=== PATIENT | male | born 1965 | race Caucasian/White ===

== ENCOUNTER 2018-03-31 05:09 | Inpatient (IN) ==
--- NOTE | 2018-03-31 05:45 | ED ---
HPI General Chief Complaint: Chest Pain Stated Complaint: Chest pressure, diff breathing Time Seen by Provider: 03/31/18 05:27 Source: patient Mode of arrival: ambulatory Limitations: no limitations History of Present Illness HPI narrative: 52 yo male complains of chest pain for about 14 hours. Onset occurred at rest. Associated symptoms include palpitations. No shortness of breath. The patient has a history of A. fib. He reports compliance with Xarelto diltiazem and metoprolol. Patient also has history of CHF and reports compliance to Lasix. No change in urinary frequency. Patient reports drinking alcohol typically daily. He denies drug abuse. No radiation of chest pain. MD complaint: Reports chest pain STEMI Alert: No Duration: constant Onset: during rest Pain location: Reports substernal Pain radiation: Reports none Relieving factors: nothing Related Data Home Medications Medication Instructions Recorded Confirmed furosemide 03/31/18 Allergies Allergy/AdvReac Type Severity Reaction Status Date / Time No Known Allergies Allergy Verified 03/31/18 05:26 Review of Systems ROS: all other systems reviewed are negative [facility] Family History Family History Other Family history non-contributory Social History Social History Substance History: Active Abuse Second Hand Smoke Exposure: Yes Smoking Status: Current every day smoker Tobacco Type: Cigarettes How Often Do You Have a Drink Containing Alcohol: 4 or more times a week Recent Travel in [facility] within the Last 8 Weeks: No Recent Out of Country Travel within the Last 8 Weeks: No Substance Abuse Detail Marijuana: Substance Use Status: Active Route Used Substance Abuse: Inhalation Reason for Use: Get High Immunization History Tetanus Immunization: <5 Years Exam Narrative Exam Narrative: GENERAL: 52-year-old male pleasant mild distress SKIN: Eczema. Dry and intact. HEAD: Atraumatic. Normocephalic. EYES: Pupils equal and round. No scleral icterus. No injection or drainage. ENT: No nasal bleeding or discharge. Mucous membranes pink and moist. NECK: Trachea midline. No JVD. CARDIOVASCULAR: Irregular. Tachycardia. RESPIRATORY: No accessory muscle use. Clear to auscultation. Breath sounds equal bilaterally. GASTROINTESTINAL: Abdomen soft, non-tender, nondistended. Hepatic and splenic margins not palpable. MUSCULOSKELETAL: No obvious deformities. No clubbing. No cyanosis. No edema. NEUROLOGICAL: Awake and alert. No obvious cranial nerve deficits. Motor grossly within normal limits. Normal speech. PSYCHIATRIC: Appropriate mood and affect; insight and judgment normal. Course Initial Documented Vital Signs Temperature 98.4 F 03/31/18 05:18 Pulse Rate 140 H 03/31/18 05:18 Respiratory Rate 21 03/31/18 05:18 Blood Pressure 141/83 H 03/31/18 05:18 Pulse Oximetry 97 03/31/18 05:18 Last Documented Vital Signs Temperature 98.2 F 03/31/18 16:00 Pulse Rate 135 H 03/31/18 16:00 Respiratory Rate 18 03/31/18 16:00 Blood Pressure 121/87 03/31/18 16:00 Pulse Oximetry 93 L 03/31/18 21:12 Critical Care Time Critical Care Time: Yes Total Critical Care Time: 40 Attestation: Aggregate critical care time was 40 minutes. Time to perform other separately billable procedures was not included in the critical care time. My time did not include minutes spent treating any other patients simultaneously or on activities that did not directly contribute to the patient's treatment. The services I provided to this patient were to treat and/or prevent clinically significant deterioration that could result in: Tachydysrhythmia, hypotensive shock I provided critical care services requiring my management, as noted below: Chart data review, documentation time, medication orders and management, vital sign assessments/reviewing monitor data, ordering and reviewing lab tests, ordering and interpreting/reviewing x-rays and diagnostic studies, care of the patient and discussion of the patient with the admitting physicians. Sign Out Sign Out Data: Patient Sign Out occurred on 03/31/18 at 07:11. Patient's care was discussed, and care was transferred from Steven Smith MD to Wisam Hess MD. Sign Out Comment: 52-year-old male arrives A. fib RVR. Chest pain is reported to be 7/10. He is on Xarelto for A. fib. He has been compliant with diltiazem and metoprolol. Comprehensive panel required a second tube due to hemolysis. 10 mg diltiazem IV initially did not change the heart rate. A second dose 20 mg followed by IV drip order has been placed. Please reassess the patient's pain status and heart rate and disposition pending the results of the compressive panel in the clinical status. Please call if you have any questions [phone] Last updated by Steven Smith MD at 03/31/18 06:51 Post-Handoff Eval: Patient evaluated by me Dr. Hess after sign out at 0700, 52-year-old male appears comfortable, chest tightness, also has a history of chronic significant alcohol intake to on a daily basis. Patient's troponin negative, remains tachycardic in the 140s-150s, Cardizem being titrated up. Discussed with Dr. Portillo for admission. The patient is followed by Dr. 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 Medical Decision Making MDM Narrative Medical decision making narrative: Patient arrives with Cortes alcantara RVR. He received 10 mg of diltiazem. Heart rate did not change. Nitroglycerin administered and the pain did not improved. Patient reassessed again at 6:45 AM. Morphine added. Diltiazem 20 mg followed by an IV drip. Recollect reported by the lab. A second tube was sent. Case discussed with oncoming provider at 7 AM. Disposition pending results of chemistry and patient's clinical status. Medical Screen Exam Complete: Yes Emergency Medical Condition: Yes Differential Diagnosis Differential Diagnosis: NSTEMI, unstable angina, coronary vasospasm, PE, PTX, aortic dissection, pericarditis, myocarditis, endocarditis, PNA, esophageal disease, aneurysm, musculoskeletal etiologies, anxiety, cocaine/sympathomimetic abuse Lab Data Result diagrams: 03/31/18 05:30 03/31/18 06:40 Lab Results 03/31/18 03/31/18 03/31/18 Range/Units 05:30 05:30 05:30 WBC 4.9 (4.0-11.0) th/mm3 RBC 4.87 (4.50-5.90) mil/mm3 Hgb 13.7 (13.0-17.0) gm/dL Hct 41.9 (39.0-51.0) % MCV 86.0 (80.0-100.0) fL MCH 28.2 (27.0-34.0) pg MCHC 32.8 (32.0-36.0) % RDW 19.0 H (11.6-17.2) % Plt Count 129 L (150-450) th/mm3 MPV 7.6 (7.0-11.0) fL Prelim Diff (Auto) Slide review pending Neut % (Auto) 60.4 (16.0-70.0) % Lymph % (Auto) 26.9 (9.0-44.0) % Lassen % (Auto) 8.9 H (0.0-8.0) % Eos % (Auto) 2.9 (0.0-4.0) % Baso % (Auto) 0.9 (0.0-2.0) % Neut # (Auto) 3.0 (1.8-7.7) th/mm3 Lymph # (Auto) 1.3 (1.0-4.8) th/mm3 Lassen # (Auto) 0.4 (0.0-0.9) th/mm3 Eos # (Auto) 0.1 (0.0-0.4) th/mm3 Baso # (Auto) 0.0 (0.0-0.2) th/mm3 WBC Differential . Diff Scan Auto diff confirmed Differential Comment . Platelet Estimate Low L (Normal) Platelet Morphology Normal (Normal) Ovalocytes 1+ H (None) PT (9.8-11.6) sec INR Ratio D-Dimer Quant (PE/DVT) (0.00-0.50) mg/L FEU Sodium (136-145) meq/L Potassium (3.5-5.1) meq/L Chloride (98-107) meq/L Carbon Dioxide (21.0-32.0) meq/L Anion Gap (5-15) meq/L BUN (7-18) mg/dL Creatinine (0.60-1.30) mg/dL Estimated GFR (>89) mL/min Random Glucose (74-106) mg/dL Calcium (8.5-10.1) mg/dL Total Bilirubin (0.2-1.0) mg/dL AST (15-37) U/L ALT (12-78) U/L Alkaline Phosphatase (45-117) U/L Troponin I (0.02-0.05) ng/mL B-Natriuretic Peptide 102 H 83 (0-100) pg/mL Total Protein (6.4-8.2) g/dL Albumin (3.4-5.0) g/dL Urine Opiates Screen (Neg) Ur Barbiturates Screen (Neg) Ur Amphetamines Screen (Neg) U Benzodiazepines Scrn (Neg) Urine Cocaine Screen (Neg) U Cannabinoids Screen (Neg) Serum Alcohol (0-5) mg/dL 03/31/18 03/31/18 03/31/18 Range/Units 06:40 10:59 10:59 WBC (4.0-11.0) th/mm3 RBC (4.50-5.90) mil/mm3 Hgb (13.0-17.0) gm/dL Hct (39.0-51.0) % MCV (80.0-100.0) fL MCH (27.0-34.0) pg MCHC (32.0-36.0) % RDW (11.6-17.2) % Plt Count (150-450) th/mm3 MPV (7.0-11.0) fL Prelim Diff (Auto) Neut % (Auto) (16.0-70.0) % Lymph % (Auto) (9.0-44.0) % Lassen % (Auto) (0.0-8.0) % Eos % (Auto) (0.0-4.0) % Baso % (Auto) (0.0-2.0) % Neut # (Auto) (1.8-7.7) th/mm3 Lymph # (Auto) (1.0-4.8) th/mm3 Lassen # (Auto) (0.0-0.9) th/mm3 Eos # (Auto) (0.0-0.4) th/mm3 Baso # (Auto) (0.0-0.2) th/mm3 WBC Differential Diff Scan Differential Comment Platelet Estimate (Normal) Platelet Morphology (Normal) Ovalocytes (None) PT 12.9 H (9.8-11.6) sec INR 1.3 Ratio D-Dimer Quant (PE/DVT) (0.00-0.50) mg/L FEU Sodium 135 L (136-145) meq/L Potassium 3.6 (3.5-5.1) meq/L Chloride 96 L (98-107) meq/L Carbon Dioxide 22.6 (21.0-32.0) meq/L Anion Gap 16 H (5-15) meq/L BUN 11 (7-18) mg/dL Creatinine 1.14 (0.60-1.30) mg/dL Estimated GFR 67 L (>89) mL/min Random Glucose 82 (74-106) mg/dL Calcium 8.7 (8.5-10.1) mg/dL Total Bilirubin 1.1 H (0.2-1.0) mg/dL AST 38 H (15-37) U/L ALT 27 (12-78) U/L Alkaline Phosphatase 84 (45-117) U/L Troponin I Less than 0.02 L Less than 0.02 L (0.02-0.05) ng/mL B-Natriuretic Peptide (0-100) pg/mL Total Protein 9.0 H (6.4-8.2) g/dL Albumin 3.4 (3.4-5.0) g/dL Urine Opiates Screen (Neg) Ur Barbiturates Screen (Neg) Ur Amphetamines Screen (Neg) U Benzodiazepines Scrn (Neg) Urine Cocaine Screen (Neg) U Cannabinoids Screen (Neg) Serum Alcohol 44 H (0-5) mg/dL 03/31/18 03/31/18 03/31/18 Range/Units 10:59 13:46 15:58 WBC (4.0-11.0) th/mm3 RBC (4.50-5.90) mil/mm3 Hgb (13.0-17.0) gm/dL Hct (39.0-51.0) % MCV (80.0-100.0) fL MCH (27.0-34.0) pg MCHC (32.0-36.0) % RDW (11.6-17.2) % Plt Count (150-450) th/mm3 MPV (7.0-11.0) fL Prelim Diff (Auto) Neut % (Auto) (16.0-70.0) % Lymph % (Auto) (9.0-44.0) % Lassen % (Auto) (0.0-8.0) % Eos % (Auto) (0.0-4.0) % Baso % (Auto) (0.0-2.0) % Neut # (Auto) (1.8-7.7) th/mm3 Lymph # (Auto) (1.0-4.8) th/mm3 Lassen # (Auto) (0.0-0.9) th/mm3 Eos # (Auto) (0.0-0.4) th/mm3 Baso # (Auto) (0.0-0.2) th/mm3 WBC Differential Diff Scan Differential Comment Platelet Estimate (Normal) Platelet Morphology (Normal) Ovalocytes (None) PT (9.8-11.6) sec INR Ratio D-Dimer Quant (PE/DVT) 0.84 H (0.00-0.50) mg/L FEU Sodium (136-145) meq/L Potassium (3.5-5.1) meq/L Chloride (98-107) meq/L Carbon Dioxide (21.0-32.0) meq/L Anion Gap (5-15) meq/L BUN (7-18) mg/dL Creatinine (0.60-1.30) mg/dL Estimated GFR (>89) mL/min Random Glucose (74-106) mg/dL Calcium (8.5-10.1) mg/dL Total Bilirubin (0.2-1.0) mg/dL AST (15-37) U/L ALT (12-78) U/L Alkaline Phosphatase (45-117) U/L Troponin I Less than 0.02 L (0.02-0.05) ng/mL B-Natriuretic Peptide (0-100) pg/mL Total Protein (6.4-8.2) g/dL Albumin (3.4-5.0) g/dL Urine Opiates Screen Neg (Neg) Ur Barbiturates Screen Neg (Neg) Ur Amphetamines Screen Neg (Neg) U Benzodiazepines Scrn Neg (Neg) Urine Cocaine Screen Neg (Neg) U Cannabinoids Screen Neg (Neg) Serum Alcohol (0-5) mg/dL Imaging Data Radiologist's impression: Chest CTA 03/31/18 00:00 CONCLUSION: 1. No evidence for pulmonary embolism. Chest X-Ray 03/31/18 05:27 CONCLUSION: Cardiomegaly. No acute pulmonary disease. ECG Data Attestation: I personally reviewed and interpreted this ECG as follows: Discharge Plan Discharge Disposition Patient Disposition: 30 Still Patient Physicians Team ED Provider: Wisam Hess Primary Care Provider: Chad Garcia Attending Provider: Elliot Triana Other Providers: Chiqui Byrne Status ED Status: Left Department Discharge Information Discharge Date/Time: 03/31/18 09:30
[2018-03-31 05:53] LABS: Baso % (Auto) 0.9 % (0.0-2.0); Eos # (Auto) 0.1 th/mm3 (0.0-0.4); Eos % (Auto) 2.9 % (0.0-4.0); Hematocrit 41.9 % (39.0-51.0); Hemoglobin 13.7 gm/dL (13.0-17.0); Lymph # (Auto) 1.3 th/mm3 (1.0-4.8); Lymph % (Auto) 26.9 % (9.0-44.0); Mean Corpuscular HGB Conc 32.8 % (32.0-36.0); Mean Corpuscular Hemoglobin 28.2 pg (27.0-34.0); Mean Platelet Volume 7.6 fL (7.0-11.0); Mono # (Auto) 0.4 th/mm3 (0.0-0.9); Mono % (Auto) 8.9 % (0.0-8.0); Neut % (Auto) 60.4 % (16.0-70.0); Platelet Count 129 th/mm3 (150-450); Red Blood Count 4.87 mil/mm3 (4.50-5.90); White Blood Count 4.9 th/mm3 (4.0-11.0)
--- NOTE | 2018-03-31 06:07 | XR ---
EXAM DATE: 03/31/2018 5:27 AM EDT AGE/SEX: 52 years / Male INDICATIONS: Substernal chest pain. CLINICAL DATA: This is the patient's initial encounter. Patient reports that signs and symptoms have been present for 1 day and indicates a pain score of 4/10. MEDICAL/SURGICAL HISTORY: Congestive heart failure. None. COMPARISON: [facility], CT CHEST W/O CONTRAST, 09/07/2014. . FINDINGS: The cardiac silhouette is enlarged in transverse diameter. The lungs are free of acute parenchymal op acity. No effusions are identified. There is pleural thickening and old fractures in the left chest. CONCLUSION: Cardiomegaly. No acute pulmonary disease. Electronically signed by: Azar Ledesma MD 03/31/2018 6:05 AM EDT
[2018-03-31 06:14] LABS: Alkaline Phosphatase 84 U/L (45-117)
[2018-03-31] MEDS ORDERED: Morphine Inj 4 MG/ML Vial IV.PUSH ONE (06:32)
[2018-03-31] MEDS: dilTIAZem Inj 125 MG in Sodium Chlor 0.9% Inj 100 ML IV.CONT PRN ×2 (07:15→18:16)
[2018-03-31 07:25] LABS: Albumin 3.4 g/dL (3.4-5.0); Anion Gap 16 meq/L (5-15); Aspartate Aminotransferase 38 U/L (15-37); Blood Urea Nitrogen 11 mg/dL (7-18); Calcium 8.7 mg/dL (8.5-10.1); Carbon Dioxide 22.6 meq/L (21.0-32.0); Chloride 96 meq/L (98-107); Glomerular Filtration Rate 67 mL/min (>89); Glucose,Random 82 mg/dL (74-106); Potassium 3.6 meq/L (3.5-5.1); Sodium 135 meq/L (136-145)
[2018-03-31 07:26] LABS: Alanine Aminotransferase 27 U/L (12-78)
[2018-03-31 07:27] LABS: Alcohol 44 mg/dL (0-5)
[2018-03-31 07:31] LABS: Platelet Morphology Normal (Normal)
[2018-03-31 07:32] LABS: Ovalocytes 1+
[2018-03-31] MEDS ORDERED: Bisacodyl 10 MG Supp RECTAL PRN (08:32)
[2018-03-31] MEDS ORDERED: Heparin - SQ 10,000 UNITS/ML Vial SQ SCH (09:00)
[2018-03-31] MEDS ORDERED: Sod Chloride 0.9% Inj 1,000 ML IV.CONT SCH (09:00)
[2018-03-31] MEDS ORDERED: Haloperidol Inj 5 MG/ML Ampul IV.PUSH PRN (09:36)
--- NOTE | 2018-03-31 09:49 | P.CONCA ---
History of Present Illness Service: Cardiology Consult date: 03/31/18 Reason for Consult: Afib RVR Primary Care Provider: Chad Garcia MD Chief Complaint: Chest pain, SOB History of Present Illness: Pleasant 52 year old male, known to our practice with a past cardiac history of Afib onset 07/2017, SVT, HTN, venous insuficiency, anemia, elevated LFTs, GERD, obesity, cellulitis, psoriasis, depression, tobacco abuse, and alcohol abuse. Patient reports that he felt like he was coming down with a virus yesterday, he laid down last night and developed SOB and chest pain, reports he felt like he was having a panic attack. Upon initial exam patient is in Afib RVR [id number] , diaphoretic, C/O chest pain and SOB. He was in ICU in [place] in Jun 2017 with HR in the 180s and alcohol detox. Patient was seen in office in August 2017. At that time he was on Xarelto 20mg daily, Metoprolol 50mg BID, Diltiazem 180mg BID, Furosemide 40mg daily, KCL 10meq daily, [id number], Ventolin HFA q 6 hrs PRN, and Bupropion ER 300mg daily. Plan was to start Amiodarone and paln for VEGA/Cardio in September, however the patient cancelled his follow up appointment. In August patient reported that he has been sober for 1 month and was in AA, unfortunately this AM he reports that he started drinking heavily again a few months ago. In the past he reported that his significant other of 16 years earlier this year with AIDS. Patient reported that he had HIV testing during a hospitalization in [place] earlier this year and he tested negative? Review of Systems Constitutional: Reports body ache(s), Reports excessive sweating, Reports night sweats Cardiovascular: Reports chest pain, Reports chest pain at rest, Reports chest pain with activity, Reports excessive sweating, Reports fast heart rate, Reports irregular heart rhythm, Reports leg sores, Reports leg swelling, Reports rapid, pounding, or irregular heartbeat, Reports shortness of breath with activity, Reports shortness of breath when lying down Respiratory: Reports shortness of breath Endocrine: Reports excessive sweating PMFSH - History History Provided By: Patient - Medical History Medical History: Medical History (Last Updated 10/17/18 @ 05:21 by Danielle Sam) Afib CHF (congestive heart failure) COPD (chronic obstructive pulmonary disease) Generalized psoriasis HTN (hypertension) - Surgical History Surgical History: Surgical History (Last Updated 03/31/18 @ 05:21 by Danielle Sam) History of appendectomy - Social History I have reviewed the patient's Social History: Yes - Tobacco History Tobacco Use In Past 30 Days: Yes Smoking Status: Current every day smoker Tobacco Type: Cigarettes - Alcohol History How Often Do You Have a Drink Containing Alcohol: 4 or more times a week - Substance Use History Substance History: Active Abuse - Substance Use Type Marijuana Status: Active Route Used: Inhalation Reason for Use: Get High - Travel History Recent Travel in the [place] Within the Last 8 Weeks: No Recent Travel Out of the Country Within the Last 8 Weeks: No - Immunization History Tetanus Immunization: <5 Years Medications and Allergies Allergies Allergy/AdvReac Type Severity Reaction Status Date / Time No Known Allergies Allergy Verified 03/31/18 05:26 Home Medications Medication Instructions Recorded Confirmed Type Unable to Obtain Home Meds 03/31/18 03/31/18 History Active Medications: Active Medications Al Hydroxide/Mg Hydroxide (Milk Of Magnesia Liq) 30 ml PO Q12H PRN PRN Reason: Mild Constipation Bisacodyl (Dulcolax Supp) 10 mg RECTAL DAILY PRN PRN Reason: SEVERE CONSITIPATION Flumazenil (Romazecon Inj) 0.2 mg IV.PUSH Q1M PRN PRN Reason: OVERSEDATION Haloperidol Lactate (Haldol Inj) 1 mg IV.PUSH Q15M PRN PRN Reason: for severe agitation Heparin Sodium (Porcine) (Heparin Inj) 5,000 units SQ Q8H JUSTO Diltiazem HCl 125 mg/ Sodium (Chloride) 125 mls @ 5 mls/hr IV.CONT TITRATE PRN ; Protocol PRN Reason: Per Protocol Last Titration: 03/31/18 08:00 Dose: 10 mg/hr, 10 mls/hr Sodium Chloride (Ns Inj) 1,000 mls @ 100 mls/hr IV.CONT .Q10H JUSTO Stop: 03/31/18 18:59 Lactulose (Lactulose Liq) 30 ml PO DAILY PRN PRN Reason: SEVERE CONSITIPATION Lorazepam (Ativan) 1 mg PO Q4H PRN PRN Reason: for CIWA 8-10 Lorazepam (Ativan Inj) 2 mg IV.PUSH Q2H PRN PRN Reason: for CIWA 11-14 Lorazepam (Ativan Inj) 2 mg IV.PUSH Q1H PRN PRN Reason: for CIWA 15-20 Lorazepam (Ativan Inj) 2 mg IV.PUSH Q15M PRN PRN Reason: for CIWA > 20 Lorazepam (Ativan Inj) 1 mg IV.PUSH Q4H PRN PRN Reason: for CIWA 8-10 Lorazepam (Ativan) 2 mg PO Q2H PRN PRN Reason: for CIWA 11-14 Metoprolol Tartrate (Lopressor) 50 mg PO BID JUSTO Sennosides (Senokot) 17.2 mg PO Q12H PRN PRN Reason: Moderate Constipation Sodium Chloride (Ns Flush) 2 ml IV.FLUSH UNSCH PRN PRN Reason: FLUSH AFTER USING IV ACCESS Last Admin: 03/31/18 05:46 Dose: 2 ml Exam Vital signs: Vital Signs 03/31/18 05:18 03/31/18 05:26 03/31/18 05:27 Temperature 98.4 F Pulse Rate 140 H 139 H Respiratory Rate 21 18 Blood Pressure 141/83 H 147/92 H Pulse Oximetry 97 97 97 03/31/18 06:12 03/31/18 06:46 03/31/18 08:30 Temperature Pulse Rate 140 H 121 H Respiratory Rate 20 16 Blood Pressure 134/65 163/116 H 152/89 H Pulse Oximetry 97 98 Intake & Output 03/30/18 03/31/18 03/31/18 18:59 06:59 18:59 Weight 127.006 kg - Constitutional mild distress, obese - Routine HEENT Exam Head: Present: atraumatic Eye: Present: PERRL, normal accommodation ENT: Present: mucous membranes moist - Routine Neck Exam Present: supple, full ROM, trachea midline - Routine Respiratory Exam Present: diminished air movement - Routine Cardiovascular Exam Present: tachycardia, irregularly irregular - Routine Extremities Exam Comments: elephantitis? psoriasis - Routine Skin Exam Present: dry, lesions, rash, cracked - Routine Neurological Exam Present: alert, oriented X3 Results 03/31/18 05:30 03/31/18 06:40 Cardiac Enzymes 03/31/18 03/31/18 Range/Units 05:30 06:40 AST 38 H (15-37) U/L Troponin I Less than 0.02 L (0.02-0.05) ng/mL B-Natriuretic Peptide 102 H (0-100) pg/mL Coagulation 03/31/18 Range/Units 05:30 B-Natriuretic Peptide 102 H (0-100) pg/mL CBC 03/31/18 Range/Units 05:30 WBC 4.9 (4.0-11.0) th/mm3 RBC 4.87 (4.50-5.90) mil/mm3 Hgb 13.7 (13.0-17.0) gm/dL Hct 41.9 (39.0-51.0) % Plt Count 129 L (150-450) th/mm3 Neut # (Auto) 3.0 (1.8-7.7) th/mm3 Lymph # (Auto) 1.3 (1.0-4.8) th/mm3 Bollinger # (Auto) 0.4 (0.0-0.9) th/mm3 Eos # (Auto) 0.1 (0.0-0.4) th/mm3 Baso # (Auto) 0.0 (0.0-0.2) th/mm3 Comprehensive Metabolic Panel 03/31/18 Range/Units 06:40 Sodium 135 L (136-145) meq/L Potassium 3.6 (3.5-5.1) meq/L Chloride 96 L (98-107) meq/L Carbon Dioxide 22.6 (21.0-32.0) meq/L BUN 11 (7-18) mg/dL Creatinine 1.14 (0.60-1.30) mg/dL Calcium 8.7 (8.5-10.1) mg/dL AST 38 H (15-37) U/L ALT 27 (12-78) U/L Alkaline Phosphatase 84 (45-117) U/L Total Protein 9.0 H (6.4-8.2) g/dL Albumin 3.4 (3.4-5.0) g/dL Intake and Output 03/30/18 03/31/18 03/31/18 22:59 06:59 14:59 Other: Weight 127.006 kg - Imaging and Cardiology Imaging: Impressions Chest X-Ray 03/31/18 05:27 CONCLUSION: Cardiomegaly. No acute pulmonary disease. Assessment and Plan - Plan Assessment Atrial fibrillation RVR Chest pain SOB HTN Alcohol withdrawal Psoriasis Plan Currently on Cardizem Drip, will restart home Metoprolol 50mg BID and DC heparin and resume Xarelto 20mg daily. 1st troponin negative.D-Dimer elevated, CTA negative for PE. CIWA protocol ordered per attending Will consult wound care. The patient was seen and evaluated by Dr. Byrne who participated in care management and decision making. The exam, history, and the medical decision-making described in the above note were completed with the assistance of the mid-level provider. I reviewed and agree with the findings presented. I attest that I had a [id number] encounter with the patient on the same day, and personally performed and documented my assessment and findings in the medical record. Very ill man negative cta ,on Xarelto. Code Status: Full Code Discussed Condition With: Attending Dr. Triana, RN Adrián
[2018-03-31] MEDS: Metoprolol Tartrate 50 MG Tablet PO SCH ×2 (11:06→20:18)
[2018-03-31] MEDS: Furosemide 40 MG Tablet PO SCH (11:07)
[2018-03-31] MEDS: Rivaroxaban 20 MG Tablet PO SCH (11:07)
[2018-03-31 11:19] LABS: INR 1.3 Ratio; Prothrombin Time 12.9 sec (9.8-11.6)
--- NOTE | 2018-03-31 13:00 | CT ---
EXAM DATE: 03/31/2018 12:21 PM EDT AGE/SEX: 52 years / Male INDICATIONS: Chest pain elevated D-dimer CLINICAL DATA: This is the patient's initial encounter. Patient reports that signs and symptoms have been present for 1 day and indicates a pain score of 5/10. MEDICAL/SURGICAL HISTORY: Chronic obstructive pulmonary disease. Congestive heart failure. Hypert ension. A-fib Appendectomy. RADIATION DOSE: 23.27 CTDI (mGy) COMPARISON: [facility], CHEST 1V SINGLE AP, 03/31/2018. . TECHNIQUE: Volumetric scanning was performed using a multi-row detector CT scanner during bolus infu lydia of 73 ml Omnipaque 350 (iohexol) nonionic water-soluble contrast as a single exam dose. The nena a was post processed with a variety of visualization algorithms including full volume maximum intensi ty projection and sliding thin slab reformation. Using automated exposure control and adjustment of the mA and/or kV according to patient size, radiation dose was kept as low as reasonably achievable t o obtain optimal diagnostic quality images. DICOM format image data is available electronically for review and comparison. FINDINGS: Mild dependent atelectatic changes are noted. No adenopathy. Cirrhotic appearing liver. No evidence f or pulmonary embolus. No pleural or pericardial effusions are seen. There are degenerative changes of the spine noted. CONCLUSION: 1. No evidence for pulmonary embolism. Electronically signed by: Roger Rick MD 03/31/2018 12:59 PM EDT
[2018-03-31] MEDS ORDERED: Influenza (Quadrivalent) Vaccine 0.5 ML Syringe IM ONE (14:00)
--- NOTE | 2018-03-31 14:17 | ECG ---
Date Performed: 03/31/2018 Time Performed: 05:20:07 PTAGE: 52 years EKG: ATRIAL FIBRILLATION WITH RAPID VENTRICULAR RESPONSE MINIMAL ST DEPRESSION ABNORMAL RHYTHM E CG ATRIAL FIBRILLATION has replaced Normal Sinus rhythm PREVIOUS TRACING : 01/12/2012 18.32 DOCTOR: Allison Bland M.D. Interpretating Date/Time 03/31/2018 14:17:04
[2018-03-31 14:40] LABS: Amphetamine Screen,Urine Neg (Neg); Barbiturate Screen,Urine Neg (Neg); Cannabinoid Screen,Urine Neg (Neg); Cocaine Screen,Urine Neg (Neg)
[2018-03-31 14:53] LABS: Opiate Screen,Urine Neg (Neg)
--- NOTE | 2018-03-31 16:18 | P.HPIM ---
History of Present Illness [facility] Physician: Chad Garcia MD Chief Complaint: Chest pain, SOB History of Present Illness: 52-year-old male with a medical history significant for atrial fibrillation, SVT , COPD, CHF, psoriasis, and alcohol dependence who presented to the emergency room with complaint of chest pain for about 14 hours. Patient reports the pain started at rest with associated heart palpitations. He denies shortness of breath. He reports he recently went back to drinking heavily 4-5 shots of vodka daily. In the emergency room, the patient was found to be in A. fib with RVR. He was started on a Cardizem drip. He is admitted to the hospital for further treatment. The patient's heart rate is still difficult to control currently. Inpatient Certification: I certify that the inpatient services were ordered in accordance with Medicare regulations governing the order. This includes certification that hospital inpatient services are reasonable and necessary and in the case of services not specified as inpatient-only under 42 CFR 419.22(n), that they are appropriately provided as inpatient services in accordance to with the 2-midnight benchmark under 43 CFR 412.3(e) Estimated Total Length of Stay (Days): 2 Plans for Post Hospital Care: Home Review of Systems All other systems reviewed negative except as stated in HPI Cardiovascular: Reports chest pain, Reports fast heart rate Respiratory: Reports shortness of breath with activity PMFSH - History History Provided By: Patient - Medical History Medical History: Medical History (Last Reviewed 03/31/18 @ 18:19 by Elliot Triana MD) Afib Alcohol dependence CHF (congestive heart failure) COPD (chronic obstructive pulmonary disease) Generalized psoriasis HTN (hypertension) - Surgical History Surgical History: Surgical History (Last Reviewed 03/31/18 @ 18:19 by Elliot Triana MD) History of appendectomy - Family History Family History: Family History (Last Updated 03/31/18 @ 18:19 by Elliot Triana MD) Other Family history non-contributory - Social History I have reviewed the patient's Social History: Yes - Tobacco History Second Hand Smoke Exposure: Yes Tobacco Use In Past 30 Days: Yes Smoking Status: Current every day smoker Tobacco Type: Cigarettes - Alcohol History How Often Do You Have a Drink Containing Alcohol: 4 or more times a week - Substance Use History Substance History: Active Abuse - Substance Use Type Marijuana Status: Active Route Used: Inhalation Frequency: rarely Last Used: 3 weeks ago Reason for Use: Get High - Travel History Recent Travel in the [place] Within the Last 8 Weeks: No Recent Travel Out of the Country Within the Last 8 Weeks: No - Immunization History Tetanus Immunization: <5 Years Hx Influenza Vaccine This Season: No Medications and Allergies Active Medications: Active Medications Al Hydroxide/Mg Hydroxide (Milk Of Magnesia Liq) 30 ml PO Q12H PRN PRN Reason: Mild Constipation Albuterol (Ventolin Hfa Inh) 2 puff INH Q6HR JUSTO Bisacodyl (Dulcolax Supp) 10 mg RECTAL DAILY PRN PRN Reason: SEVERE CONSITIPATION Flumazenil (Romazecon Inj) 0.2 mg IV.PUSH Q1M PRN PRN Reason: OVERSEDATION Furosemide (Lasix) 40 mg PO DAILY JUST[facility] Last Admin: 03/31/18 11:07 Dose: 40 mg Haloperidol Lactate (Haldol Inj) 1 mg IV.PUSH Q15M PRN PRN Reason: for severe agitation Diltiazem HCl 125 mg/ Sodium (Chloride) 125 mls @ 5 mls/hr IV.CONT TITRATE PRN ; Protocol PRN Reason: Per Protocol Last Titration: 03/31/18 08:15 Dose: 15 mg/hr, 15 mls/hr Sodium Chloride (Ns Inj) 1,000 mls @ 100 mls/hr IV.CONT .Q10H JUSTO Stop: 03/31/18 18:59 Lactulose (Lactulose Liq) 30 ml PO DAILY PRN PRN Reason: SEVERE CONSITIPATION Lorazepam (Ativan) 1 mg PO Q4H PRN PRN Reason: for CIWA 8-10 Lorazepam (Ativan Inj) 2 mg IV.PUSH Q2H PRN PRN Reason: for CIWA 11-14 Last Admin: 03/31/18 14:20 Dose: 2 mg Lorazepam (Ativan Inj) 2 mg IV.PUSH Q1H PRN PRN Reason: for CIWA 15-20 Lorazepam (Ativan Inj) 2 mg IV.PUSH Q15M PRN PRN Reason: for CIWA > 20 Lorazepam (Ativan Inj) 1 mg IV.PUSH Q4H PRN PRN Reason: for CIWA 8-10 Lorazepam (Ativan) 2 mg PO Q2H PRN PRN Reason: for CIWA -14 Last Admin: 03/31/18 11:06 Dose: 2 mg Metoprolol Tartrate (Lopressor) 50 mg PO BID [facility] Last Admin: 03/31/18 11:06 Dose: 50 mg Pantoprazole Sodium (Protonix) 40 mg PO DAILY [facility] Potassium Chloride (Klor-Con 10) 10 meq PO DAILY [facility] Last Admin: 03/31/18 11:07 Dose: 10 meq Rivaroxaban (Xarelto) 20 mg PO DAILY [facility] Last Admin: 03/31/18 11:07 Dose: 20 mg Sennosides (Senokot) 17.2 mg PO Q12H PRN PRN Reason: Moderate Constipation Sodium Chloride (Ns Flush) 2 ml IV.FLUSH UNSCH PRN PRN Reason: FLUSH AFTER USING IV ACCESS Last Admin: 03/31/18 05:46 Dose: 2 ml Allergies Allergy/AdvReac Type Severity Reaction Status Date / Time No Known Allergies Allergy Verified 03/31/18 05:26 Home Medications Medication Instructions Recorded Confirmed Type furosemide 03/31/18 History Exam Vital signs: Vital Signs 03/31/18 05:18 03/31/18 05:26 03/31/18 05:27 Temperature 98.4 F Pulse Rate 140 H 139 H Respiratory Rate 21 18 Blood Pressure 141/83 H 147/92 H Pulse Oximetry 97 97 97 03/31/18 06:12 03/31/18 06:46 03/31/18 08:30 Temperature Pulse Rate 140 H 121 H Respiratory Rate 20 16 Blood Pressure 134/65 163/116 H 152/89 H Pulse Oximetry 97 98 03/31/18 10:00 03/31/18 10:39 03/31/18 11:00 Temperature 98.2 F Pulse Rate 156 H 136 H 132 H Respiratory Rate 20 Blood Pressure 135/80 Pulse Oximetry 95 03/31/18 12:00 03/31/18 13:00 03/31/18 14:00 Temperature Pulse Rate 124 H 128 H 130 H Respiratory Rate Blood Pressure Pulse Oximetry 03/31/18 14:36 03/31/18 14:39 Temperature 98.2 F Pulse Rate 126 H Respiratory Rate 18 Blood Pressure 127/83 Pulse Oximetry 92 L 95 Intake & Output 03/30/18 03/31/18 03/31/18 18:59 06:59 18:59 Weight 127.006 kg Narrative: GENERAL: This is a well-nourished, well-developed patient, in no apparent distress. CARDIOVASCULAR: Rate in the 120s and irregular rhythm without murmurs, gallops, or rubs. RESPIRATORY: Good respiratory efforts. Breath sounds equal and clear to auscultation bilaterally. GASTROINTESTINAL: Abdomen soft, non-tender, non-distended. Normal active bowel sounds MUSCULOSKELETAL: Extremities without cyanosis, or edema. NEURO: Alert & Oriented x4 to person, place, time, situation. Moves all ext x4 PSYCH: Appropriate mood and affect. SKIN: Generalized psoriasis. Bilateral lower extremity chronic lymphedema changes. Results - Labs CBC & Chem 7: 03/31/18 05:30 03/31/18 06:40 Labs: Short CBC 03/31/18 Range/Units 05:30 WBC 4.9 (4.0-11.0) th/mm3 Hgb 13.7 (13.0-17.0) gm/dL Hct 41.9 (39.0-51.0) % Plt Count 129 L (150-450) th/mm3 BMP 03/31/18 06:40 Sodium 135 L Potassium 3.6 Chloride 96 L Carbon Dioxide 22.6 BUN 11 Creatinine 1.14 Calcium 8.7 Cardiac Enzymes 03/31/18 03/31/18 Range/Units 06:40 10:59 Troponin I Less than 0.02 L Less than 0.02 L (0.02-0.05) ng/mL Liver Function 03/31/18 Range/Units 06:40 Total Bilirubin 1.1 H (0.2-1.0) mg/dL AST 38 H (15-37) U/L ALT 27 (12-78) U/L Alkaline Phosphatase 84 (45-117) U/L Albumin 3.4 (3.4-5.0) g/dL - Imaging Impressions Chest CTA 03/31/18 00:00 CONCLUSION: 1. No evidence for pulmonary embolism. Chest X-Ray 03/31/18 05:27 CONCLUSION: Cardiomegaly. No acute pulmonary disease. Caprini VTE Risk Assessment Caprini VTE Risk Assessment: Moderate/High Risk (score >= 2) Caprini Risk Assessment Model: Point Value = 1 Point Value = 2 Point Value = 3 Point Value = 5 Age 41-60 Minor surgery BMI > 25 kg/m2 Swollen legs Varicose veins or History of unexplained or recurrent spontaneous Oral contraceptives or hormone replacement Sepsis (< 1 month) Serious lung disease, including pneumonia (< 1 month) Abnormal pulmonary function Acute myocardial infarction Congestive heart failure (< 1 month) History of inflammatory bowel disease Medical patient at bed rest Age 61-74 Arthroscopic surgery Major open surgery (> 45 min) Laparoscopic surgery (> 45 min) Malignancy Confined to bed (> 72 hours) Immobilizing plaster cast Central venous access Age >= 75 History of VTE Family history of VTE Factor V Leiden Prothrombin [id number] Lupus anticoagulant Anticardiolipin antibodies Elevated serum homocysteine Heparin-induced thrombocytopenia Other congenital or acquired thrombophilia Stroke (< 1 month) Elective arthroplasty Hip, pelvis, or leg fracture Acute spinal cord injury (< 1 month) Prophylaxis Regimen: Total Risk Factor Score Risk Level Prophylaxis Regimen 0-1 Low Early ambulation 2 Moderate Order ONE of the following: *Sequential Compression Device (SCD) *Heparin 5000 units SQ BID 3-4 Higher Order ONE of the following medications: *Heparin 5000 units SQ TID *Enoxaparin/Lovenox 40 mg SQ daily (WT < 150 kg, CrCl > 30 mL/min) *Enoxaparin/Lovenox 30 mg SQ daily (WT < 150 kg, CrCl > 10-29 mL/min) *Enoxaparin/Lovenox 30 mg SQ BID (WT < 150 kg, CrCl > 30 mL/min) AND/OR *Sequential Compression Device (SCD) 5 or more Highest Order ONE of the following medications: *Heparin 5000 units SQ TID (Preferred with Epidurals) *Enoxaparin/Lovenox 40 mg SQ daily (WT < 150 kg, CrCl > 30 mL/min) *Enoxaparin/Lovenox 30 mg SQ daily (WT < 150 kg, CrCl > 10-29 mL/min) *Enoxaparin/Lovenox 30 mg SQ BID (WT < 150 kg, CrCl > 30 mL/min) AND *Sequential Compression Device (SCD) Assessment and Plan - Plan 52-year-old male with history of A. fib, alcohol dependence, CHF admitted with A. fib with RVR. A. fib with RVR: - Patient is currently on a Cardizem drip. Rate not well controlled. Appreciate cardiology input. He was started on metoprolol as well. - Continue to monitor on telemetry. - Continue Xarelto. He definitely needs to stop drinking alcohol if he is to remain on blood thinners. Will defer to his practice coordinator. Alcohol dependence: - The patient was counseled extensively. - We will start CIWA protocol - Thiamine and folate CHF: Unknown type. - Continue Lasix, metoprolol. - Cardiology following. Chest pain: Could be secondary to A. fib with RVR. - Troponins so far negative. EKG shows A. fib. Cardiology following. - Pain control. CTA neg. GI prophylaxis: Stool softener PRN constipation. DVT PPx: On Xarelto. Discharge Planning: Admit to [facility]. H&P: Quality - VTE Deep Vein Thrombosis/Pulmonary Embolism Present on Admission: No
--- NOTE | 2018-03-31 17:11 | P.DIET ---
Nutritional Evaluation Type of nutrition evaluation: initial Nutrition consult regarding: Diet Evaluation Nutrition screening: Weight Loss > 10 lbs Subjective Subjective Comments: Pt had a variable intake of 0% breakfast and 100% lunch on 03/31. Per chart, pt stated he had unplanned wt loss. Objective - Diagnosis AFIB, RVR - Objective Body Mass Index: 40.2 [place] body weight: 75 kg % IBW: 168 Body Weight Used for Calculations: IBW Energy Needs - Lower Range (kCal/kg): 22 Energy Needs - Upper Range (kCal/kg): 27 Lower Limit kCal/kg (kCals): 1,660 Upper Limit kCal/kg (kCals): 2,037 Lower Limit Protein Factor (Grams per Kg): 1.1 Upper Limit Protein Factor (Grams per Kg): 1.3 Lower Protein Needs (Protein): 83 Upper Protein Needs (Protein): 98 Dietitian Reviewed in Medical Record: Current diet, Curent medications, Intake & Output, Labs, Medical history Oral Diet Intake Amount: Fair 50-75% Speech Therapy Recommendations: No Objective Comments: PMH include: AFIB (onset on 08/02), CHF, COPD, psoriasis, HTN, GERD, cellulitis , depression, tobacco/alcohol/marijuana abuse, anemia, appendectomy Labs include: (03/31) Na: 135, Cl: 96, GFR: 67 Meds include: milk of mag, Ventolin, diltiazem, Lasix, Haldol, Ativan, Lopressor , Protonix, Xarelto, Zofran, morphine Assessment Assessment: Pt at nutritional risk r/t reported unintentional wt loss. Pt tolerating current diet with variable PO intake. Will continue to assess pts nutritional needs for a PO supplement as appropriate. Labs reviewed and dietitian following. Recommendations: 1. Monitor any wt loss 2. Monitor PO intake 3. Will assess pts nutritional needs for a PO supplement as appropriate 4. Dietitian following pts nutritional status Dietitian to Monitor: Lab values, Intake & Output, Diet tolerance, Weight change , PO Intake, Medical course
[2018-03-31] MEDS ORDERED: Metoprolol Inj 5 MG/5 ML Vial IV.PUSH ONE (18:00)
[2018-03-31] MEDS: Morphine Inj 4 MG/ML Vial IV.PUSH PRN (19:41)
[2018-03-31] MEDS ORDERED: Amiodarone Inj 150 MG in Dextrose 5% in Water Inj 97 ML IV.SIG ONE ×2 (22:00)
[2018-03-31] MEDS ORDERED: Amiodarone 200 MG Tablet PO ONE (22:15)
[2018-03-31] MEDS ORDERED: Acetaminophen 325 MG Tablet PO ONE (23:17)
[2018-03-31] MEDS ORDERED: Sodium Chloride 0.9% 2 ML Flush PRN IV.FLUSH (23:19)
[2018-04-01 04:52] LABS: Baso % (Auto) 0.5 % (0.0-2.0); Eos # (Auto) 0.1 th/mm3 (0.0-0.4); Eos % (Auto) 1.6 % (0.0-4.0); Hematocrit 35.7 % (39.0-51.0); Hemoglobin 11.7 gm/dL (13.0-17.0); Lymph # (Auto) 0.6 th/mm3 (1.0-4.8); Lymph % (Auto) 17.1 % (9.0-44.0); Mean Corpuscular HGB Conc 32.9 % (32.0-36.0); Mean Corpuscular Hemoglobin 28.6 pg (27.0-34.0); Mean Corpuscular Volume 86.8 fL (80.0-100.0); Mean Platelet Volume 7.8 fL (7.0-11.0); Mono # (Auto) 0.3 th/mm3 (0.0-0.9); Mono % (Auto) 7.6 % (0.0-8.0); Neut # (Auto) 2.4 th/mm3 (1.8-7.7); Neut % (Auto) 73.2 % (16.0-70.0); Platelet Count 71 th/mm3 (150-450); Red Blood Count 4.11 mil/mm3 (4.50-5.90); Red Cell Distribution Width 18.4 % (11.6-17.2); White Blood Count 3.3 th/mm3 (4.0-11.0)
[2018-04-01 05:18] LABS: Calcium 7.7 mg/dL (8.5-10.1); Carbon Dioxide 27.1 meq/L (21.0-32.0); Potassium 3.3 meq/L (3.5-5.1)
[2018-04-01 07:20] LABS: Ovalocytes 1+; Platelet Morphology Normal (Normal)
[2018-04-01] MEDS: Rivaroxaban 20 MG Tablet PO SCH (08:44)
[2018-04-01] MEDS: Amiodarone 200 MG Tablet PO SCH (08:44)
[2018-04-01] MEDS: Furosemide 40 MG Tablet PO SCH (08:44)
[2018-04-01] MEDS: Metoprolol Tartrate 50 MG Tablet PO SCH ×2 (08:44→20:33)
[2018-04-01] MEDS: Sodium Chloride 0.9% 2 ML Flush BID IV.FLUSH SCH ×2 (08:45→20:33)
[2018-04-01] MEDS: LORazepam 1 MG Tablet PO PRN ×2 (08:45→17:16)
[2018-04-01] MEDS ORDERED: Digoxin Inj 500 MCG/2 ML Ampul IV.PUSH ONE (10:39)
--- NOTE | 2018-04-01 10:48 | P.PNCA ---
Subjective Interval history: Patient sleeping in bed. He continues to have chest pressure. Rates his pain7/10 , reports nothing relieves the pressure. Troponins negative. CTA negative for PE. HR continues to be elevated. Telemetry reveals Afib RVR rate 130s-160s. Medications and Allergies Allergies Allergy/AdvReac Type Severity Reaction Status Date / Time No Known Allergies Allergy Verified 03/31/18 05:26 Home Medications Medication Instructions Recorded Confirmed Type furosemide 03/31/18 History Active Medications: Active Medications Al Hydroxide/Mg Hydroxide (Milk Of Magnesia Liq) 30 ml PO Q12H PRN PRN Reason: Mild Constipation Albuterol (Ventolin Hfa Inh) 2 puff INH Q6HR [facility] Last Admin: 04/01/18 05:49 Dose: 2 puff Amiodarone HCl (Cordarone) 200 mg PO DAILY [facility] Last Admin: 04/01/18 08:44 Dose: 200 mg Bisacodyl (Dulcolax Supp) 10 mg RECTAL DAILY PRN PRN Reason: SEVERE CONSITIPATION Digoxin (Lanoxin Inj) 250 mcg IV.PUSH ONCE ONE Stop: 04/01/18 10:40 Flumazenil (Romazecon Inj) 0.2 mg IV.PUSH Q1M PRN PRN Reason: OVERSEDATION Furosemide (Lasix) 40 mg PO DAILY [facility] Last Admin: 04/01/18 08:44 Dose: 40 mg Haloperidol Lactate (Haldol Inj) 1 mg IV.PUSH Q15M PRN PRN Reason: for severe agitation Amiodarone HCl 450 mg/ (Dextrose) 250 mls @ 33.33 mls/hr IV.CONT TITRATE PRN; Protocol PRN Reason: Per Protocol Last Admin: 04/01/18 08:00 Dose: 0.49 mg/min, 16.6 mls/hr Lactulose (Lactulose Liq) 30 ml PO DAILY PRN PRN Reason: SEVERE CONSITIPATION Lorazepam (Ativan) 1 mg PO Q4H PRN PRN Reason: for CIWA 8-10 Last Admin: 04/01/18 08:45 Dose: 1 mg Lorazepam (Ativan Inj) 2 mg IV.PUSH Q2H PRN PRN Reason: for CIWA 11-14 Last Admin: 03/31/18 14:20 Dose: 2 mg Lorazepam (Ativan Inj) 2 mg IV.PUSH Q1H PRN PRN Reason: for CIWA 15-20 Last Admin: 04/01/18 03:00 Dose: 2 mg Lorazepam (Ativan Inj) 2 mg IV.PUSH Q15M PRN PRN Reason: for CIWA > 20 Lorazepam (Ativan Inj) 1 mg IV.PUSH Q4H PRN PRN Reason: for CIWA 8-10 Lorazepam (Ativan) 2 mg PO Q2H PRN PRN Reason: for CIWA 11-14 Last Admin: 03/31/18 11:06 Dose: 2 mg Metoprolol Tartrate (Lopressor) 50 mg PO BID [facility] Last Admin: 04/01/18 08:44 Dose: 50 mg Morphine Sulfate (Morphine Inj) 4 mg IV.PUSH Q4H PRN PRN Reason: BREAKTHROUGH PAIN Last Admin: 03/31/18 19:41 Dose: 4 mg Oxycodone/Acetaminophen (Percocet 5/325 Mg) 1 tab PO Q4H PRN PRN Reason: PAIN SCALE 6 TO 10 Last Admin: 04/01/18 10:02 Dose: 1 tab Pantoprazole Sodium (Protonix) 40 mg PO DAILY [facility] Last Admin: 04/01/18 08:44 Dose: 40 mg Potassium Chloride (Klor-Con 10) 10 meq PO DAILY [facility] Last Admin: 04/01/18 08:44 Dose: 10 meq Rivaroxaban (Xarelto) 20 mg PO DAILY [facility] Last Admin: 04/01/18 08:44 Dose: 20 mg Sennosides (Senokot) 17.2 mg PO Q12H PRN PRN Reason: Moderate Constipation Sodium Chloride (Ns Flush) 2 ml IV.FLUSH BID [facility] Last Admin: 04/01/18 08:45 Dose: 2 ml Sodium Chloride (Ns Flush) 2 ml IV.FLUSH PRN PRN PRN Reason: FLUSH AFTER USING IV ACCESS Physical Exam Vital signs: Vital Signs 03/31/18 11:00 03/31/18 12:00 03/31/18 13:00 Temperature Pulse Rate 132 H 124 H 128 H Respiratory Rate Blood Pressure Pulse Oximetry 03/31/18 14:00 03/31/18 14:36 03/31/18 14:39 Temperature 98.2 F Pulse Rate 130 H 126 H Respiratory Rate 18 Blood Pressure 127/83 Pulse Oximetry 92 L 95 03/31/18 16:00 03/31/18 19:00 03/31/18 20:00 Temperature 98.2 F Pulse Rate 135 H 139 H 145 H Respiratory Rate 18 Blood Pressure 121/87 Pulse Oximetry 94 L 97 03/31/18 21:00 03/31/18 21:12 03/31/18 22:00 Temperature Pulse Rate 146 H 134 H Respiratory Rate Blood Pressure Pulse Oximetry 93 L 03/31/18 23:00 04/01/18 00:00 04/01/18 01:00 Temperature 101.5 F H Pulse Rate 127 H 156 H 162 H Respiratory Rate 22 Blood Pressure 143/87 H Pulse Oximetry 95 04/01/18 02:00 04/01/18 03:00 04/01/18 04:00 Temperature 99.4 F Pulse Rate 150 H 131 H 147 H Respiratory Rate 20 Blood Pressure 133/81 Pulse Oximetry 95 04/01/18 05:00 04/01/18 06:00 04/01/18 08:00 Temperature 99.0 F Pulse Rate 142 H 141 H 139 H Respiratory Rate 18 Blood Pressure 118/95 H Pulse Oximetry 95 Intake & Output 03/31/18 04/01/18 04/01/18 18:59 06:59 18:59 Intake Total 1049 / 1049 895 / 895 250 / 250 Output Total 1450 / 1450 400 / 400 Balance -401 / -401 495 / 495 250 / 250 Weight 130.5 kg Intake: IV 125 / 125 175 / 175 250 / 250 Cordarone Inj 450 MG In D5W Inj 250 / 250 241 ML @ 1 MG/MIN 33.33 mls/hr IV.CONT TITRATE PRN Rx#: [id number] Cardizem Inj 125 MG In NS Inj 125 / 125 75 / 75 100 ML @ 5 MG/HR 5 mls/hr IV. CONT TITRATE PRN Rx#:[id number] Cordarone Inj 150 MG In D5W Inj 100 / 100 97 ML @ 600 mls/hr IV.SIG ONCE ONE Rx#:[id number] Oral 924 / 924 720 / 720 Output: Urine 1450 / 1450 400 / 400 Other: # Voids 5 Date of Last Bowel Movement 03/30/18 03/30/18 # Bowel Movements 0 - Constitutional no acute distress, obese, disheveled - Routine HEENT Exam Head: Present: normocephalic Eye: Present: PERRL, normal accommodation ENT: Present: mucous membranes moist - Routine Neck Exam Present: supple, trachea midline - Routine Respiratory Exam Present: diminished air movement - Routine Cardiovascular Exam Present: tachycardia, irregularly irregular - Routine Abdominal Exam Present: soft - Routine Skin Exam Present: dry, lesions, rash, cracked - Routine Neurological Exam Present: alert, oriented X3 - Detailed Neurological Exam: Coma Scale Eye Opening: Spontaneous Verbal Response: Oriented Motor Response: Obey commands [place] Coma Scale Total: 15 Results 04/02/18 05:18 04/02/18 05:18 Cardiac Enzymes 03/31/18 03/31/18 03/31/18 Range/Units 05:30 05:30 06:40 AST 38 H (15-37) U/L Troponin I Less than 0.02 L (0.02-0.05) ng/mL B-Natriuretic Peptide 102 H 83 (0-100) pg/mL 03/31/18 03/31/18 Range/Units 10:59 15:58 AST (15-37) U/L Troponin I Less than 0.02 L Less than 0.02 L (0.02-0.05) ng/mL B-Natriuretic Peptide (0-100) pg/mL Coagulation 03/31/18 03/31/18 03/31/18 Range/Units 05:30 05:30 10:59 PT 12.9 H (9.8-11.6) sec B-Natriuretic Peptide 102 H 83 (0-100) pg/mL CBC 03/31/18 04/01/18 Range/Units 05:30 04:10 WBC 4.9 3.3 L (4.0-11.0) th/mm3 RBC 4.87 4.11 L (4.50-5.90) mil/mm3 Hgb 13.7 11.7 L D (13.0-17.0) gm/dL Hct 41.9 35.7 L (39.0-51.0) % Plt Count 129 L 71 L D (150-450) th/mm3 Neut # (Auto) 3.0 2.4 (1.8-7.7) th/mm3 Lymph # (Auto) 1.3 0.6 L (1.0-4.8) th/mm3 [place] # (Auto) 0.4 0.3 (0.0-0.9) th/mm3 Eos # (Auto) 0.1 0.1 (0.0-0.4) th/mm3 Baso # (Auto) 0.0 0.0 (0.0-0.2) th/mm3 Comprehensive Metabolic Panel 03/31/18 04/01/18 Range/Units 06:40 04:10 Sodium 135 L 125 L D (136-145) meq/L Potassium 3.6 3.3 L (3.5-5.1) meq/L Chloride 96 L 87 L D (98-107) meq/L Carbon Dioxide 22.6 27.1 (21.0-32.0) meq/L BUN 11 14 (7-18) mg/dL Creatinine 1.14 1.43 H (0.60-1.30) mg/dL Calcium 8.7 7.7 L D (8.5-10.1) mg/dL AST 38 H (15-37) U/L ALT 27 (12-78) U/L Alkaline Phosphatase 84 (45-117) U/L Total Protein 9.0 H (6.4-8.2) g/dL Albumin 3.4 (3.4-5.0) g/dL Intake and Output 03/31/18 04/01/18 04/01/18 22:59 06:59 14:59 Intake Total 1124 / 1124 820 / 820 250 / 250 Output Total 1450 / 1450 400 / 400 Balance -326 / -326 420 / 420 250 / 250 Intake: IV 200 / 200 100 / 100 250 / 250 Cordarone Inj 450 MG In D5W Inj 250 / 250 241 ML @ 1 MG/MIN 33.33 mls/hr IV.CONT TITRATE PRN Rx#: [id number] Cardizem Inj 125 MG In NS Inj 200 / 200 100 ML @ 5 MG/HR 5 mls/hr IV. CONT TITRATE PRN Rx#:[id number] Cordarone Inj 150 MG In D5W Inj 100 / 100 97 ML @ 600 mls/hr IV.SIG ONCE ONE Rx#:[id number] Oral 924 / 924 720 / 720 Output: Urine 1450 / 1450 400 / 400 Other: # Voids 5 Date of Last Bowel Movement 03/30/18 03/30/18 # Bowel Movements 0 Weight 130.5 kg - Imaging and Cardiology Imaging: Impressions Chest CTA 03/31/18 00:00 CONCLUSION: 1. No evidence for pulmonary embolism. Chest X-Ray 03/31/18 05:27 CONCLUSION: Cardiomegaly. No acute pulmonary disease. Assessment and Plan - Plan Assessment Atrial fibrillation RVR Chest pain Hypokalemia, hyponatremia SOB HTN Alcohol withdrawal Psoriasis Plan Continues in Afib RVR, now on Amio drip and PO Amiodarone. Also on Metoprolol 50mg BID. Will give IV digoxin. Mag level ordered. Potassium replacement ordered. Continues to have chest pressure. SL nitro ordered. Will give IV fluids. CTA negative for PE. CIWA protocol ordered per attending Will consult wound care. Pending. The patient was seen and evaluated by Dr. Byrne who participated in care management and decision making. The exam, history, and the medical decision-making described in the above note were completed with the assistance of the mid-level provider. I reviewed and agree with the findings presented. I attest that I had a [id number] encounter with the patient on the same day, and personally performed and documented my assessment and findings in the medical record. Very ill man negative cta ,on Xarelto The exam, history, and the medical decision-making described in the above note were completed with the assistance of the mid-level provider. I reviewed and agree with the findings presented. I attest that I had a [id number] encounter with the patient on the same day, and personally performed and documented my assessment and findings in the medical record. Overall doing better, poor prognosis. Code Status: Full Code Discussed Condition With: Attending, Marla Bruner RN
[2018-04-01] MEDS: Sod Chloride 0.9% Inj 1,000 ML IV.CONT SCH ×2 (12:22→23:48)
--- NOTE | 2018-04-01 16:02 | P.PNWCN ---
Wound Care Nurse Consult Description: Wound care consult ordered by Elizabeth Dunne for wound management of psoriasis. Communicated with: Marla SMITH, Recommendation: 1. Patient needs to follow up with lifestyle coordinator anti itch creams if needed . Additional information: Patient was not seen today by investigative writer per conversation yesterday with Adrián SMITH. Patient noted to have chronic psoriasis with has not been treated out patient.Patient currently receiving Narcotic and scratching. Patient needs to be treated by lifestyle coordinator.
--- NOTE | 2018-04-01 16:17 | P.PNIM ---
Subjective Interval history: Patient with persistent afib with RVR. He has been started on Amiodarone drip. He still reports chest pain. Unchanged. Physical Exam Vital signs: Vital Signs 03/31/18 19:00 03/31/18 20:00 03/31/18 21:00 Temperature Pulse Rate 139 H 145 H 146 H Respiratory Rate Blood Pressure Pulse Oximetry 97 03/31/18 21:12 03/31/18 22:00 03/31/18 23:00 Temperature Pulse Rate 134 H 127 H Respiratory Rate Blood Pressure Pulse Oximetry 93 L 04/01/18 00:00 04/01/18 01:00 04/01/18 02:00 Temperature 101.5 F H Pulse Rate 156 H 162 H 150 H Respiratory Rate 22 Blood Pressure 143/87 H Pulse Oximetry 95 04/01/18 03:00 04/01/18 04:00 04/01/18 05:00 Temperature 99.4 F Pulse Rate 131 H 147 H 142 H Respiratory Rate 20 Blood Pressure 133/81 Pulse Oximetry 95 04/01/18 06:00 04/01/18 07:00 04/01/18 08:00 Temperature 99.0 F Pulse Rate 141 H 144 H 144 H Respiratory Rate 18 Blood Pressure 118/95 H Pulse Oximetry 95 04/01/18 09:00 04/01/18 10:00 04/01/18 10:35 Temperature Pulse Rate 150 H 144 H Respiratory Rate 18 Blood Pressure Pulse Oximetry 04/01/18 11:00 04/01/18 11:28 04/01/18 12:00 Temperature 99.1 F Pulse Rate 155 H 124 H Respiratory Rate 18 18 Blood Pressure 118/70 Pulse Oximetry 96 04/01/18 13:00 04/01/18 14:00 Temperature Pulse Rate 124 H 116 H Respiratory Rate Blood Pressure Pulse Oximetry Intake & Output 03/31/18 04/01/18 04/01/18 18:59 06:59 18:59 Intake Total 1049 / 1049 895 / 895 250 / 250 Output Total 1450 / 1450 400 / 400 Balance -401 / -401 495 / 495 250 / 250 Weight 130.5 kg Intake: IV 125 / 125 175 / 175 250 / 250 Cordarone Inj 450 MG In D5W Inj 250 / 250 241 ML @ 1 MG/MIN 33.33 mls/hr IV.CONT TITRATE PRN Rx#: [id number] Cardizem Inj 125 MG In NS Inj 125 / 125 75 / 75 100 ML @ 5 MG/HR 5 mls/hr IV. CONT TITRATE PRN Rx#:[id number] Cordarone Inj 150 MG In D5W Inj 100 / 100 97 ML @ 600 mls/hr IV.SIG ONCE ONE Rx#:[id number] Oral 924 / 924 720 / 720 Output: Urine 1450 / 1450 400 / 400 Other: # Voids 5 Date of Last Bowel Movement 03/30/18 03/30/18 # Bowel Movements 0 Narrative: GENERAL: This is a well-nourished, well-developed patient, in no apparent distress. CARDIOVASCULAR: Rate in the 120s and irregular rhythm without murmurs, gallops, or rubs. RESPIRATORY: Good respiratory efforts. Breath sounds equal and clear to auscultation bilaterally. GASTROINTESTINAL: Abdomen soft, non-tender, non-distended. Normal active bowel sounds MUSCULOSKELETAL: Extremities without cyanosis, or edema. NEURO: Alert & Oriented x4 to person, place, time, situation. Moves all ext x4 PSYCH: Appropriate mood and affect. SKIN: Generalized psoriasis. Bilateral lower extremity chronic lymphedema changes. Results - Labs CBC & Chem 7: 04/01/18 04:10 04/01/18 04:10 Laboratory Results - last 24 hr 03/31/18 04/01/18 04/01/18 15:58 04:10 04:10 WBC 3.3 L RBC 4.11 L Hgb 11.7 L D Hct 35.7 L MCV 86.8 MCH 28.6 MCHC 32.9 RDW 18.4 H Plt Count 71 L D MPV 7.8 Prelim Diff (Auto) Slide review pending Neut % (Auto) 73.2 H Lymph % (Auto) 17.1 [place] % (Auto) 7.6 Eos % (Auto) 1.6 Baso % (Auto) 0.5 Neut # (Auto) 2.4 Lymph # (Auto) 0.6 L [place] # (Auto) 0.3 Eos # (Auto) 0.1 Baso # (Auto) 0.0 WBC Differential . Diff Scan Auto diff confirmed Differential Comment . Platelet Estimate Low L Platelet Morphology Normal Ovalocytes 1+ H Sodium 125 L D Potassium 3.3 L Chloride 87 L D Carbon Dioxide 27.1 Anion Gap 11 BUN 14 Creatinine 1.43 H Estimated GFR 52 L Random Glucose 408 H D Calcium 7.7 L D Magnesium Troponin I Less than 0.02 L 04/01/18 04:10 WBC RBC Hgb Hct MCV MCH MCHC RDW Plt Count MPV Prelim Diff (Auto) Neut % (Auto) Lymph % (Auto) [place] % (Auto) Eos % (Auto) Baso % (Auto) Neut # (Auto) Lymph # (Auto) [place] # (Auto) Eos # (Auto) Baso # (Auto) WBC Differential Diff Scan Differential Comment Platelet Estimate Platelet Morphology Ovalocytes Sodium Potassium Chloride Carbon Dioxide Anion Gap BUN Creatinine Estimated GFR Random Glucose Calcium Magnesium 1.5 Troponin I Assessment and Plan - Plan 52-year-old male with history of A. fib, alcohol dependence, CHF admitted with A. fib with RVR. A. fib with RVR: - Patient on Amiodarone drip per Cardiology. He is on metoprolol as well. - Continue to monitor on telemetry. - Continue Xarelto. He definitely needs to stop drinking alcohol if he is to remain on blood thinners. 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 Alcohol dependence: - The patient was counseled extensively. - Continue CIWA protocol - Thiamine and folate CHF: Unknown type. - Continue Lasix, continue metoprolol. - Cardiology following. Chest pain: Could be secondary to A. fib with RVR. - Troponins so far negative. EKG shows A. fib. Cardiology following. - Pain control. CTA neg. Hypokalemia: Replace and monitor. GI prophylaxis: Stool softener PRN constipation. Generalized psoriasis: Patient needs outpatient follow up with Dermatology for this chronic condition. 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 DVT PPx: On Xarelto. Discharge Planning: Still critically ill. Continue care in [facility].
--- NOTE | 2018-04-01 20:31 | ECG ---
Date Performed: 03/31/2018 Time Performed: 15:14:36 PTAGE: 52 years EKG: Atrial fibrillation with rapid ventricular response. Inferior T wave changes are nonspecifi c Abnormal ECG PREVIOUS TRACING : 03/31/2018 05.20 Since the previous tracing, no significant change noted DOCTOR: Rio Lemons Interpretating Date/Time 04/01/2018 20:29:13
[2018-04-01] MEDS: Morphine Inj 4 MG/ML Vial IV.PUSH PRN (20:32)
[2018-04-01] MEDS: Mag Sulf 1 gm/100 ml Premix 100 ML IV.SIG SCH (23:49)
[2018-04-01] MEDS: Temazepam 15 MG Capsule PO PRN (23:56)
[2018-04-02] MEDS: Mag Sulf 1 gm/100 ml Premix 100 ML IV.SIG SCH (00:55)
[2018-04-02] MEDS: Sod Chloride 0.9% Inj 1,000 ML IV.CONT SCH ×2 (06:04→18:00)
[2018-04-02 06:27] LABS: Baso % (Auto) 0.9 % (0.0-2.0); Eos # (Auto) 0.1 th/mm3 (0.0-0.4); Eos % (Auto) 3.2 % (0.0-4.0); Hematocrit 36.7 % (39.0-51.0); Hemoglobin 12.2 gm/dL (13.0-17.0); Lymph # (Auto) 0.6 th/mm3 (1.0-4.8); Lymph % (Auto) 24.5 % (9.0-44.0); Mean Corpuscular HGB Conc 33.3 % (32.0-36.0); Mean Corpuscular Hemoglobin 28.6 pg (27.0-34.0); Mean Corpuscular Volume 85.9 fL (80.0-100.0); Mean Platelet Volume 7.8 fL (7.0-11.0); Mono # (Auto) 0.2 th/mm3 (0.0-0.9); Mono % (Auto) 8.9 % (0.0-8.0); Neut # (Auto) 1.5 th/mm3 (1.8-7.7); Neut % (Auto) 62.5 % (16.0-70.0); Platelet Count 71 th/mm3 (150-450); Red Blood Count 4.28 mil/mm3 (4.50-5.90); Red Cell Distribution Width 18.3 % (11.6-17.2); White Blood Count 2.3 th/mm3 (4.0-11.0)
[2018-04-02 07:35] LABS: Calcium 8.6 mg/dL (8.5-10.1); Carbon Dioxide 28.9 meq/L (21.0-32.0); Magnesium 2.1 mg/dL (1.5-2.5); Potassium 4.1 meq/L (3.5-5.1)
[2018-04-02] MEDS: LORazepam 1 MG Tablet PO PRN ×3 (09:18→22:12)
[2018-04-02] MEDS: Amiodarone 200 MG Tablet PO SCH (09:19)
[2018-04-02] MEDS: Metoprolol Tartrate 50 MG Tablet PO SCH ×3 (09:19→17:59)
[2018-04-02] MEDS: Rivaroxaban 20 MG Tablet PO SCH (09:19)
[2018-04-02] MEDS: Furosemide 40 MG Tablet PO SCH (09:20)
[2018-04-02] MEDS: Sodium Chloride 0.9% 2 ML Flush BID IV.FLUSH SCH ×2 (09:20→23:51)
[2018-04-02 12:48] LABS: Hepatitits B Surface Antigen Nonreactive (Nonreactive)
--- NOTE | 2018-04-02 12:59 | P.PNCA ---
Subjective Interval history: Patient is resting in bed. No acute complaints. He reports he chest discomfort has improved. HR better, telemetry reveals Afib, rate in the 120s. Medications and Allergies Allergies Allergy/AdvReac Type Severity Reaction Status Date / Time No Known Allergies Allergy Verified 03/31/18 05:26 Home Medications Medication Instructions Recorded Confirmed Type furosemide 03/31/18 History Active Medications: Active Medications Al Hydroxide/Mg Hydroxide (Milk Of Magnesia Liq) 30 ml PO Q12H PRN PRN Reason: Mild Constipation Albuterol (Ventolin Hfa Inh) 2 puff INH Q6HR [facility] Last Admin: 04/02/18 11:56 Dose: 2 puff Amiodarone HCl (Cordarone) 200 mg PO DAILY [facility] Last Admin: 04/02/18 09:19 Dose: 200 mg Bisacodyl (Dulcolax Supp) 10 mg RECTAL DAILY PRN PRN Reason: SEVERE CONSITIPATION Flumazenil (Romazecon Inj) 0.2 mg IV.PUSH Q1M PRN PRN Reason: OVERSEDATION Furosemide (Lasix) 40 mg PO DAILY [facility] Last Admin: 04/02/18 09:20 Dose: 40 mg Haloperidol Lactate (Haldol Inj) 1 mg IV.PUSH Q15M PRN PRN Reason: for severe agitation Amiodarone HCl 450 mg/ (Dextrose) 250 mls @ 33.33 mls/hr IV.CONT TITRATE PRN; Protocol PRN Reason: Per Protocol Last Admin: 04/02/18 01:19 Dose: 0.5 mg/min, 16.66 mls/hr Sodium Chloride (Ns Inj) 1,000 mls @ 100 mls/hr IV.CONT .Q10H [facility] Last Admin: 04/02/18 06:04 Dose: Not Given Lactulose (Lactulose Liq) 30 ml PO DAILY PRN PRN Reason: SEVERE CONSITIPATION Lorazepam (Ativan) 1 mg PO Q4H PRN PRN Reason: for CIWA 8-10 Last Admin: 04/02/18 09:18 Dose: 1 mg Lorazepam (Ativan Inj) 2 mg IV.PUSH Q2H PRN PRN Reason: for CIWA 11-14 Last Admin: 03/31/18 14:20 Dose: 2 mg Lorazepam (Ativan Inj) 2 mg IV.PUSH Q1H PRN PRN Reason: for CIWA 15-20 Last Admin: 04/01/18 03:00 Dose: 2 mg Lorazepam (Ativan Inj) 2 mg IV.PUSH Q15M PRN PRN Reason: for CIWA > 20 Lorazepam (Ativan Inj) 1 mg IV.PUSH Q4H PRN PRN Reason: for CIWA 8-10 Lorazepam (Ativan) 2 mg PO Q2H PRN PRN Reason: for CIWA 11-14 Last Admin: 04/01/18 12:17 Dose: 2 mg Metoprolol Tartrate (Lopressor) 50 mg PO BID [facility] Last Admin: 04/02/18 09:19 Dose: 50 mg Morphine Sulfate (Morphine Inj) 4 mg IV.PUSH Q4H PRN PRN Reason: BREAKTHROUGH PAIN Last Admin: 04/01/18 20:32 Dose: 4 mg Oxycodone/Acetaminophen (Percocet 5/325 Mg) 1 tab PO Q4H PRN PRN Reason: PAIN SCALE 6 TO 10 Last Admin: 04/01/18 10:02 Dose: 1 tab Pantoprazole Sodium (Protonix) 40 mg PO DAILY [facility] Last Admin: 04/02/18 09:20 Dose: 40 mg Potassium Chloride (Klor-Con 10) 30 meq PO DAILY [facility] Last Admin: 04/02/18 09:19 Dose: 30 meq Rivaroxaban (Xarelto) 20 mg PO DAILY [facility] Last Admin: 04/02/18 09:19 Dose: 20 mg Sennosides (Senokot) 17.2 mg PO Q12H PRN PRN Reason: Moderate Constipation Sodium Chloride (Ns Flush) 2 ml IV.FLUSH BID [facility] Last Admin: 04/02/18 09:20 Dose: 2 ml Sodium Chloride (Ns Flush) 2 ml IV.FLUSH PRN PRN PRN Reason: FLUSH AFTER USING IV ACCESS Temazepam (Restoril) 15 mg PO HS PRN PRN Reason: INSOMNIA Last Admin: 04/01/18 23:56 Dose: 15 mg Physical Exam Vital signs: Vital Signs 04/01/18 13:00 04/01/18 14:00 04/01/18 15:00 Temperature Pulse Rate 124 H 116 H 127 H Respiratory Rate Blood Pressure Pulse Oximetry 04/01/18 16:00 04/01/18 17:00 04/01/18 18:00 Temperature 98.8 F Pulse Rate 120 H 127 H 125 H Respiratory Rate 18 Blood Pressure 134/90 Pulse Oximetry 95 04/01/18 19:00 04/01/18 20:00 04/01/18 21:00 Temperature 98.5 F Pulse Rate 139 H 118 H 122 H Respiratory Rate 24 Blood Pressure 136/81 Pulse Oximetry 98 04/01/18 22:00 04/01/18 23:00 04/02/18 00:00 Temperature 98.2 F Pulse Rate 142 H 134 H 126 H Respiratory Rate 22 Blood Pressure 126/88 Pulse Oximetry 97 04/02/18 01:00 04/02/18 02:00 04/02/18 03:00 Temperature Pulse Rate 118 H 107 H 121 H Respiratory Rate Blood Pressure Pulse Oximetry 04/02/18 04:00 04/02/18 05:00 04/02/18 06:00 Temperature 98.4 F Pulse Rate 118 H 117 H 124 H Respiratory Rate 20 Blood Pressure 126/79 Pulse Oximetry 95 04/02/18 08:00 04/02/18 12:00 Temperature 98.3 F 98.4 F Pulse Rate 125 H 108 H Respiratory Rate 18 18 Blood Pressure 128/94 H 123/69 Pulse Oximetry 97 97 Intake & Output 04/01/18 04/02/18 04/02/18 18:59 06:59 18:59 Intake Total 1150 / 1150 1930 / 1930 Output Total 1175 / 1175 600 / 600 Balance -25 / -25 1330 / 1330 Weight 130.5 kg Intake: IV 250 / 250 1450 / 1450 Cordarone Inj 450 MG In D5W Inj 250 / 250 250 / 250 241 ML @ 1 MG/MIN 33.33 mls/hr IV.CONT TITRATE PRN Rx#: [id number] NS Inj 1,000 ML @ 100 mls/hr IV 1000 / 1000 .CONT .Q10H [facility]O Rx#:[id number] Magnesium Sulfate 1 gm/D5W 100 200 / 200 ml Premix 100 ML @ 100 mls/hr IV.SIG Q1H JUSTO Rx#:[id number] Oral 900 / 900 480 / 480 Output: Urine 1175 / 1175 600 / 600 Other: Date of Last Bowel Movement 03/30/18 03/30/18 - Constitutional no acute distress, obese - Routine HEENT Exam Head: Present: normocephalic, atraumatic Eye: Present: PERRL, normal accommodation ENT: Present: mucous membranes moist - Routine Neck Exam Present: supple, trachea midline - Routine Cardiovascular Exam Present: tachycardia, irregularly irregular - Routine Abdominal Exam Present: soft - Routine Extremities Exam Present: edema - Routine Skin Exam Present: intact, dry, lesions, scars, rash, cracked - Routine Neurological Exam Present: alert, oriented X3 - Detailed Neurological Exam: Coma Scale Eye Opening: Spontaneous Verbal Response: Oriented Motor Response: Obey commands Ollie Coma Scale Total: 15 - Routine Psychiatric Exam Present: normal affect Results 04/02/18 05:18 04/02/18 05:18 Cardiac Enzymes 03/31/18 Range/Units 15:58 Troponin I Less than 0.02 L (0.02-0.05) ng/mL CBC 04/01/18 04/02/18 Range/Units 04:10 05:18 WBC 3.3 L 2.3 L (4.0-11.0) th/mm3 RBC 4.11 L 4.28 L (4.50-5.90) mil/mm3 Hgb 11.7 L D 12.2 L (13.0-17.0) gm/dL Hct 35.7 L 36.7 L (39.0-51.0) % Plt Count 71 L D 71 L (150-450) th/mm3 Neut # (Auto) 2.4 1.5 L (1.8-7.7) th/mm3 Lymph # (Auto) 0.6 L 0.6 L (1.0-4.8) th/mm3 [place] # (Auto) 0.3 0.2 (0.0-0.9) th/mm3 Eos # (Auto) 0.1 0.1 (0.0-0.4) th/mm3 Baso # (Auto) 0.0 0.0 (0.0-0.2) th/mm3 Comprehensive Metabolic Panel 04/01/18 04/02/18 Range/Units 04:10 05:18 Sodium 125 L D 134 L (136-145) meq/L Potassium 3.3 L 4.1 D (3.5-5.1) meq/L Chloride 87 L D 98 D (98-107) meq/L Carbon Dioxide 27.1 28.9 (21.0-32.0) meq/L BUN 14 12 (7-18) mg/dL Creatinine 1.43 H 1.13 (0.60-1.30) mg/dL Calcium 7.7 L D 8.6 D (8.5-10.1) mg/dL Intake and Output 04/01/18 04/02/18 04/02/18 22:59 06:59 14:59 Intake Total 900 / 900 1930 / 1930 Output Total 1175 / 1175 600 / 600 Balance -275 / -275 1330 / 1330 Intake: IV 1450 / 1450 Cordarone Inj 450 MG In D5W Inj 250 / 250 241 ML @ 1 MG/MIN 33.33 mls/hr IV.CONT TITRATE PRN Rx#: [id number] NS Inj 1,000 ML @ 100 mls/hr IV 1000 / 1000 .CONT .Q10H [facility]O Rx#:[id number] Magnesium Sulfate 1 gm/D5W 100 200 / 200 ml Premix 100 ML @ 100 mls/hr IV.SIG Q1H JUSTO Rx#:[id number] Oral 900 / 900 480 / 480 Output: Urine 1175 / 1175 600 / 600 Other: Date of Last Bowel Movement 03/30/18 03/30/18 Weight 130.5 kg - Imaging and Cardiology Imaging: Impressions Chest CTA 03/31/18 00:00 CONCLUSION: 1. No evidence for pulmonary embolism. Assessment and Plan - Plan Assessment Atrial fibrillation RVR Chest pain Hypokalemia, hyponatremia SOB HTN Alcohol withdrawal Psoriasis Plan On Xarelto. Educated on increased risk of bleeding with alcohol abuse. Continues in Afib RVR, now on Amio drip and PO Amiodarone. Also on Metoprolol 50mg BID. Pt recieved IV digoxin yesterday. Electrolyte replacement ordered. HR improved today. Will increase Metoprolol to 50mg TID. Chest pressure improved, could be secondary to tachycardia. CTA negative for PE. CIWA protocol ordered per attending Elevated AST, low platelets. Pt reported his partner dies of HIV, questionable drug abuse in the past, hepatitis panel ordered. The patient was seen and evaluated by Dr. Byrne who participated in care management and decision making. The exam, history, and the medical decision-making described in the above note were completed with the assistance of the mid-level provider. I reviewed and agree with the findings presented. I attest that I had a [id number] encounter with the patient on the same day, and personally performed and documented my assessment and findings in the medical record. HR better. Code Status: Full Code Discussed Condition With: RN
[2018-04-02 13:04] LABS: Hepatitis A IgM Antibody Nonreactive (Nonreactive)
--- NOTE | 2018-04-02 16:23 | P.PNIM ---
Subjective Interval history: Patient seen around 11 AM. Heart rate is still not controlled. Currently on amiodarone drip. He reports the chest pain have improved but is not completely gone. Physical Exam Vital signs: Vital Signs 04/01/18 17:00 04/01/18 18:00 04/01/18 19:00 Temperature Pulse Rate 127 H 125 H 139 H Respiratory Rate Blood Pressure Pulse Oximetry 04/01/18 20:00 04/01/18 21:00 04/01/18 22:00 Temperature 98.5 F Pulse Rate 118 H 122 H 142 H Respiratory Rate 24 Blood Pressure 136/81 Pulse Oximetry 98 04/01/18 23:00 04/02/18 00:00 04/02/18 01:00 Temperature 98.2 F Pulse Rate 134 H 126 H 118 H Respiratory Rate 22 Blood Pressure 126/88 Pulse Oximetry 97 04/02/18 02:00 04/02/18 03:00 04/02/18 04:00 Temperature 98.4 F Pulse Rate 107 H 121 H 118 H Respiratory Rate 20 Blood Pressure 126/79 Pulse Oximetry 95 04/02/18 05:00 04/02/18 06:00 04/02/18 08:00 Temperature 98.3 F Pulse Rate 117 H 124 H 125 H Respiratory Rate 18 Blood Pressure 128/94 H Pulse Oximetry 97 04/02/18 12:00 Temperature 98.4 F Pulse Rate 108 H Respiratory Rate 18 Blood Pressure 123/69 Pulse Oximetry 97 Intake & Output 04/01/18 04/02/18 04/02/18 18:59 06:59 18:59 Intake Total 1150 / 1150 1930 / 1930 Output Total 1175 / 1175 600 / 600 Balance -25 / -25 1330 / 1330 Weight 130.5 kg Intake: IV 250 / 250 1450 / 1450 Cordarone Inj 450 MG In D5W Inj 250 / 250 250 / 250 241 ML @ 1 MG/MIN 33.33 mls/hr IV.CONT TITRATE PRN Rx#: [id number] NS Inj 1,000 ML @ 100 mls/hr IV 1000 / 1000 .CONT .Q10H [facility] Rx#:[id number] Magnesium Sulfate 1 gm/D5W 100 200 / 200 ml Premix 100 ML @ 100 mls/hr IV.SIG Q1H [facility] Rx#:[id number] Oral 900 / 900 480 / 480 Output: Urine 1175 / 1175 600 / 600 Other: Date of Last Bowel Movement 03/30/18 03/30/18 Narrative: GENERAL: This is a well-nourished, well-developed patient, in no apparent distress. CARDIOVASCULAR: Rate in the 120s and irregular rhythm without murmurs, gallops, or rubs. RESPIRATORY: Good respiratory efforts. Breath sounds equal and clear to auscultation bilaterally. GASTROINTESTINAL: Abdomen soft, non-tender, non-distended. Normal active bowel sounds MUSCULOSKELETAL: Extremities without cyanosis, or edema. NEURO: Alert & Oriented x4 to person, place, time, situation. Moves all ext x4 PSYCH: Appropriate mood and affect. SKIN: Generalized psoriasis. Bilateral lower extremity chronic lymphedema changes. Results - Labs CBC & Chem 7: 04/02/18 05:18 04/02/18 05:18 Laboratory Results - last 24 hr 04/02/18 04/02/18 04/02/18 05:18 05:18 11:10 WBC 2.3 L RBC 4.28 L Hgb 12.2 L Hct 36.7 L MCV 85.9 MCH 28.6 MCHC 33.3 RDW 18.3 H Plt Count 71 L MPV 7.8 Prelim Diff (Auto) Slide review pending Neut % (Auto) 62.5 Lymph % (Auto) 24.5 [place] % (Auto) 8.9 H Eos % (Auto) 3.2 Baso % (Auto) 0.9 Neut # (Auto) 1.5 L Lymph # (Auto) 0.6 L [place] # (Auto) 0.2 Eos # (Auto) 0.1 Baso # (Auto) 0.0 WBC Differential . Diff Scan Auto diff confirmed Differential Comment . Sodium 134 L Potassium 4.1 D Chloride 98 D Carbon Dioxide 28.9 Anion Gap 7 BUN 12 Creatinine 1.13 Estimated GFR 68 L Random Glucose 92 D Calcium 8.6 D Magnesium 2.1 D Hepatitis A IgM Ab Nonreactive Hep Bs Antigen Nonreactive Hep B Core IgM Ab Nonreactive Hep C IgG Ab Nonreactive Assessment and Plan - Plan 52-year-old male with history of A. fib, alcohol dependence, CHF admitted with A. fib with RVR. A. fib with RVR: - Patient on Amiodarone drip per Cardiology. He is on metoprolol as well. Heart rate not well controlled yet. Defer to cardiology - Continue to monitor on telemetry. - Continue Xarelto. He definitely needs to stop drinking alcohol if he is to remain on blood thinners. 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 Alcohol dependence: - The patient was counseled extensively. - Continue CIWA protocol - Thiamine and folate CHF: Unknown type. - Continue Lasix, continue metoprolol. - Cardiology following. Chest pain: Could be secondary to A. fib with RVR. - Troponins so far negative. EKG shows A. fib. Cardiology following. - Pain control. CTA neg. Hypokalemia: Replaced and monitor. GI prophylaxis: Stool softener PRN constipation. Generalized psoriasis: Patient needs outpatient follow up with Dermatology for this chronic condition. 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 DVT PPx: On Xarelto. Discharge Planning: Not medically ready for discharge. Need better heart rate control. Continue care in [facility].
--- NOTE | 2018-04-02 17:13 | ECHRPT ---
Indication: CHEST PAIN CONCLUSIONS Normal left ventricular size. Wall thickness is normal. The left ventricular systolic function is borderline with an estimated ejection fraction of 50%. The right ventricular size is normal. BP: / HR: Rhythm: MEASUREMENTS (Male / Female) Normal Values Technical Quality: 2D ECHO LV Ejection Fraction MOD BP 46.4 % >= 55 % LV Ejection Fraction MOD 4C 57.5 % LV Ejection Fraction 4C AL 58.0 % LV Ejection Fraction MOD 2C 29.8 % LV Ejection Fraction 2C AL 27.2 % DOPPLER AV Peak Velocity 124.0 cm/s AV Peak Gradient 6.2 mmHg AV Mean Gradient 3.0 mmHg AV Velocity Time Integral 18.9 cm LVOT Peak Velocity 114.0 cm/s LVOT Peak Gradient 5.2 mmHg LVOT Velocity Time Integral 19.1 cm Mitral E Point Velocity 121.0 cm/s Mitral A Point Velocity 43.9 cm/s Mitral E to A Ratio 2.8 LV E' Lateral Velocity 6.4 cm/s Mitral E to LV E' Lateral Ratio 18.8 LV E' Septal Velocity 7.7 cm/s Mitral E to LV E' Septal Ratio 15.7 PV Peak Velocity 68.4 cm/s PV Peak Gradient 1.9 mmHg FINDINGS LEFT VENTRICLE Normal left ventricular size. Wall thickness is normal. The left ventricular systolic function is borderline with an estimated ejection fraction of 50%. RIGHT VENTRICLE The right ventricular size is normal. LEFT ATRIUM The left atrial size is normal. RIGHT ATRIUM The right atrial size is normal. ATRIAL SEPTUM Normal atrial septal thickness. AORTA The aortic root and proximal ascending aorta are not well visualized. The aortic root and proximal ascending aorta are normal in size on limited imaging. MITRAL VALVE Structurally normal mitral valve. AORTIC VALVE The aortic valve is not well visualized. TRICUSPID VALVE The tricuspid valve is not well visualized. PULMONARY VALVE The pulmonary valve is not well visualized. VESSELS The inferior vena cava was not well visualized. PERICARDIUM No pericardial effusion. Manolo Falk MD, FACC (Electronically Signed) Final Date:02 April 2018 17:11
[2018-04-03] MEDS: Temazepam 15 MG Capsule PO PRN (02:15)
[2018-04-03] MEDS: Sod Chloride 0.9% Inj 1,000 ML IV.CONT SCH ×3 (04:46→23:20)
[2018-04-03 06:34] LABS: Baso % (Auto) 0.5 % (0.0-2.0); Eos # (Auto) 0.1 th/mm3 (0.0-0.4); Eos % (Auto) 4.2 % (0.0-4.0); Hematocrit 36.9 % (39.0-51.0); Lymph # (Auto) 0.5 th/mm3 (1.0-4.8); Lymph % (Auto) 21.4 % (9.0-44.0); Mean Corpuscular HGB Conc 32.4 % (32.0-36.0); Mean Corpuscular Hemoglobin 28.3 pg (27.0-34.0); Mean Corpuscular Volume 87.2 fL (80.0-100.0); Mean Platelet Volume 7.7 fL (7.0-11.0); Mono # (Auto) 0.3 th/mm3 (0.0-0.9); Mono % (Auto) 10.7 % (0.0-8.0); Neut # (Auto) 1.6 th/mm3 (1.8-7.7); Neut % (Auto) 63.2 % (16.0-70.0); Platelet Count 77 th/mm3 (150-450); Red Blood Count 4.23 mil/mm3 (4.50-5.90); White Blood Count 2.5 th/mm3 (4.0-11.0)
[2018-04-03 06:59] LABS: Calcium 8.1 mg/dL (8.5-10.1); Carbon Dioxide 27.4 meq/L (21.0-32.0)
[2018-04-03 07:04] LABS: Total Protein 7.5 g/dL (6.4-8.2)
[2018-04-03 08:28] LABS: Ovalocytes 1+; Platelet Morphology Normal (Normal)
[2018-04-03] MEDS: Amiodarone 200 MG Tablet PO SCH ×2 (08:51→21:23)
[2018-04-03] MEDS: Furosemide 40 MG Tablet PO SCH (08:51)
[2018-04-03] MEDS: Rivaroxaban 20 MG Tablet PO SCH (08:51)
[2018-04-03] MEDS: Metoprolol Tartrate 50 MG Tablet PO SCH ×2 (08:52→15:52)
[2018-04-03] MEDS: Sodium Chloride 0.9% 2 ML Flush BID IV.FLUSH SCH ×2 (08:53→21:24)
--- NOTE | 2018-04-03 13:54 | P.PNCA ---
Subjective Interval history: Patient denies any CP, pressure, palpitations, dizziness or SOB. Patient does complain of edema in the lower extremities. Medications and Allergies Allergies Allergy/AdvReac Type Severity Reaction Status Date / Time No Known Allergies Allergy Verified 03/31/18 05:26 Home Medications Medication Instructions Recorded Confirmed Type furosemide 03/31/18 History Active Medications: Active Medications Al Hydroxide/Mg Hydroxide (Milk Of Magnesia Liq) 30 ml PO Q12H PRN PRN Reason: Mild Constipation Last Admin: 04/02/18 22:05 Dose: 30 ml Albuterol (Ventolin Hfa Inh) 2 puff INH Q6HR [facility] Last Admin: 04/03/18 05:57 Dose: 2 puff Amiodarone HCl (Cordarone) 200 mg PO DAILY [facility] Last Admin: 04/03/18 08:51 Dose: 200 mg Bisacodyl (Dulcolax Supp) 10 mg RECTAL DAILY PRN PRN Reason: SEVERE CONSITIPATION Flumazenil (Romazecon Inj) 0.2 mg IV.PUSH Q1M PRN PRN Reason: OVERSEDATION Furosemide (Lasix) 40 mg PO DAILY [facility] Last Admin: 04/03/18 08:51 Dose: 40 mg Haloperidol Lactate (Haldol Inj) 1 mg IV.PUSH Q15M PRN PRN Reason: for severe agitation Amiodarone HCl 450 mg/ (Dextrose) 250 mls @ 33.33 mls/hr IV.CONT TITRATE PRN; Protocol PRN Reason: Per Protocol Last Admin: 04/03/18 12:31 Dose: 0.5 mg/min, 16.66 mls/hr Sodium Chloride (Ns Inj) 1,000 mls @ 100 mls/hr IV.CONT .Q10H [facility] Last Admin: 04/03/18 04:46 Dose: 100 mls/hr Lactulose (Lactulose Liq) 30 ml PO DAILY PRN PRN Reason: SEVERE CONSITIPATION Lorazepam (Ativan) 1 mg PO Q4H PRN PRN Reason: for CIWA 8-10 Last Admin: 04/02/18 22:12 Dose: 1 mg Lorazepam (Ativan Inj) 2 mg IV.PUSH Q2H PRN PRN Reason: for CIWA 11-14 Last Admin: 03/31/18 14:20 Dose: 2 mg Lorazepam (Ativan Inj) 2 mg IV.PUSH Q1H PRN PRN Reason: for CIWA 15-20 Last Admin: 04/01/18 03:00 Dose: 2 mg Lorazepam (Ativan Inj) 2 mg IV.PUSH Q15M PRN PRN Reason: for CIWA > 20 Lorazepam (Ativan Inj) 1 mg IV.PUSH Q4H PRN PRN Reason: for CIWA 8-10 Lorazepam (Ativan) 2 mg PO Q2H PRN PRN Reason: for CIWA 11-14 Last Admin: 04/01/18 12:17 Dose: 2 mg Metoprolol Tartrate (Lopressor) 50 mg PO TID [facility] Last Admin: 04/03/18 08:52 Dose: 50 mg Morphine Sulfate (Morphine Inj) 4 mg IV.PUSH Q4H PRN PRN Reason: BREAKTHROUGH PAIN Last Admin: 04/01/18 20:32 Dose: 4 mg Oxycodone/Acetaminophen (Percocet 5/325 Mg) 1 tab PO Q4H PRN PRN Reason: PAIN SCALE 6 TO 10 Last Admin: 04/03/18 04:45 Dose: 1 tab Pantoprazole Sodium (Protonix) 40 mg PO DAILY [facility] Last Admin: 04/03/18 08:51 Dose: 40 mg Potassium Chloride (Klor-Con 10) 30 meq PO DAILY [facility] Last Admin: 04/03/18 08:51 Dose: 30 meq Rivaroxaban (Xarelto) 20 mg PO DAILY [facility] Last Admin: 04/03/18 08:51 Dose: 20 mg Sennosides (Senokot) 17.2 mg PO Q12H PRN PRN Reason: Moderate Constipation Sodium Chloride (Ns Flush) 2 ml IV.FLUSH BID [facility] Last Admin: 04/03/18 08:53 Dose: Not Given Sodium Chloride (Ns Flush) 2 ml IV.FLUSH PRN PRN PRN Reason: FLUSH AFTER USING IV ACCESS Temazepam (Restoril) 15 mg PO HS PRN PRN Reason: INSOMNIA Last Admin: 04/03/18 02:15 Dose: 15 mg Physical Exam Vital signs: Vital Signs 04/02/18 14:00 04/02/18 15:00 04/02/18 16:00 Temperature 98.5 F Pulse Rate 108 H 113 H 116 H Respiratory Rate 18 Blood Pressure 129/83 Pulse Oximetry 96 04/02/18 17:00 04/02/18 18:00 04/02/18 20:00 Temperature 98.7 F Pulse Rate 124 H 119 H 118 H Respiratory Rate 16 Blood Pressure 142/97 H Pulse Oximetry 99 04/02/18 21:00 04/02/18 22:00 04/02/18 23:00 Temperature Pulse Rate 108 H 118 H 120 H Respiratory Rate Blood Pressure Pulse Oximetry 04/03/18 00:00 04/03/18 01:00 04/03/18 02:00 Temperature Pulse Rate 112 H 112 H 115 H Respiratory Rate 16 Blood Pressure 138/96 H Pulse Oximetry 96 04/03/18 03:00 04/03/18 03:25 04/03/18 04:00 Temperature Pulse Rate 106 H 119 H 116 H Respiratory Rate 16 Blood Pressure 145/89 H Pulse Oximetry 97 04/03/18 05:00 04/03/18 06:00 04/03/18 08:00 Temperature 98.0 F Pulse Rate 117 H 120 H 125 H Respiratory Rate Blood Pressure 169/74 H Pulse Oximetry 97 04/03/18 11:12 04/03/18 11:40 Temperature 98.4 F Pulse Rate 123 H Respiratory Rate 18 Blood Pressure 145/82 H Pulse Oximetry 97 Intake & Output 04/02/18 04/03/18 04/03/18 18:59 06:59 18:59 Intake Total 2330 / 2330 1480 / 1480 250 / 250 Output Total 2740 / 2740 1150 / 1150 Balance -410 / -410 330 / 330 250 / 250 Weight 135 kg Intake: IV 1250 / 1250 1000 / 1000 250 / 250 Cordarone Inj 450 MG In D5W Inj 250 / 250 250 / 250 241 ML @ 1 MG/MIN 33.33 mls/hr IV.CONT TITRATE PRN Rx#: [id number] NS Inj 1,000 ML @ 100 mls/hr IV 1000 / 1000 1000 / 1000 .CONT .Q10H [facility] Rx#:[id number] Oral 1080 / 1080 480 / 480 Output: Urine 2740 / 2740 1150 / 1150 Other: Date of Last Bowel Movement 03/30/18 03/30/18 04/02/18 # Bowel Movements 0 - Constitutional no acute distress - Routine HEENT Exam Head: Present: normocephalic Eye: Present: PERRL ENT: Present: mucous membranes moist - Routine Neck Exam Present: full ROM - Routine Respiratory Exam Present: CTA bilaterally - Routine Cardiovascular Exam Present: S1, S2, irregular rhythm - Routine Abdominal Exam Present: normoactive bowel sounds - Routine Extremities Exam Present: edema, full ROM. Absent: cyanosis, clubbing Comments: Patient has ulcerated skin on the lower extremities. - Routine Skin Exam Present: lesions, wounds, cracked Comments: Lower extremities. - Routine Neurological Exam Present: oriented X3 - Detailed Neurological Exam: Coma Scale Eye Opening: Spontaneous Verbal Response: Oriented Motor Response: Obey commands Ollie Coma Scale Total: 15 - Routine Psychiatric Exam Present: normal thought process Results 04/03/18 05:52 04/03/18 05:52 Cardiac Enzymes 04/03/18 Range/Units 05:52 AST 30 (15-37) U/L CBC 04/02/18 04/03/18 Range/Units 05:18 05:52 WBC 2.3 L 2.5 L (4.0-11.0) th/mm3 RBC 4.28 L 4.23 L (4.50-5.90) mil/mm3 Hgb 12.2 L 12.0 L (13.0-17.0) gm/dL Hct 36.7 L 36.9 L (39.0-51.0) % Plt Count 71 L 77 L (150-450) th/mm3 Neut # (Auto) 1.5 L 1.6 L (1.8-7.7) th/mm3 Lymph # (Auto) 0.6 L 0.5 L (1.0-4.8) th/mm3 [place] # (Auto) 0.2 0.3 (0.0-0.9) th/mm3 Eos # (Auto) 0.1 0.1 (0.0-0.4) th/mm3 Baso # (Auto) 0.0 0.0 (0.0-0.2) th/mm3 Comprehensive Metabolic Panel 04/02/18 04/03/18 Range/Units 05:18 05:52 Sodium 134 L 136 (136-145) meq/L Potassium 4.1 D 4.0 (3.5-5.1) meq/L Chloride 98 D 102 (98-107) meq/L Carbon Dioxide 28.9 27.4 (21.0-32.0) meq/L BUN 12 10 (7-18) mg/dL Creatinine 1.13 1.23 (0.60-1.30) mg/dL Calcium 8.6 D 8.1 L (8.5-10.1) mg/dL Direct Bilirubin 0.3 H (0.0-0.2) mg/dL Indirect Bilirubin 0.3 (0.0-0.8) mg/dL AST 30 (15-37) U/L ALT 25 (12-78) U/L Alkaline Phosphatase 67 (45-117) U/L Total Protein 7.5 D (6.4-8.2) g/dL Albumin 3.0 L (3.4-5.0) g/dL Intake and Output 04/02/18 04/03/18 04/03/18 22:59 06:59 14:59 Intake Total 1330 / 1330 1480 / 1480 250 / 250 Output Total 2740 / 2740 1150 / 1150 Balance -1410 / -1410 330 / 330 250 / 250 Intake: IV 250 / 250 1000 / 1000 250 / 250 Cordarone Inj 450 MG In D5W Inj 250 / 250 250 / 250 241 ML @ 1 MG/MIN 33.33 mls/hr IV.CONT TITRATE PRN Rx#: [id number] NS Inj 1,000 ML @ 100 mls/hr IV 1000 / 1000 .CONT .Q10H [facility] Rx#:[id number] Oral 1080 / 1080 480 / 480 Output: Urine 2740 / 2740 1150 / 1150 Other: Date of Last Bowel Movement 03/30/18 03/30/18 04/02/18 # Bowel Movements 0 Weight 135 kg Assessment and Plan - Assessment (1) Atrial fibrillation Code(s): I48.91 - Unspecified atrial fibrillation Status: Acute (2) Chest pain Code(s): R07.9 - Chest pain, unspecified Status: Acute (3) SOB (shortness of breath) Code(s): R06.02 - Shortness of breath Status: Acute (4) Hypertension Code(s): I10 - Essential (primary) hypertension Status: Acute (5) Alcohol withdrawal Code(s): F10.239 - Alcohol dependence with withdrawal, unspecified Status: Acute (6) Psoriasis Code(s): L40.9 - Psoriasis, unspecified Status: Acute - Plan We will start patient on amiodarone loading, 400mg PO BID X 10 days then 200mg PO QD. Stop Amiodarone gtt. We will increase Metoprolol to 100mg PO BID. Continue to monitor patient on telemetry. Continue management for ETOH withdrawal. Patient seen and evaluated by Dr. Falk who participated in care, management and decision making. - Attending Attestation Patient seen and examined. I reviewed and agree with the evaluation and plan as presented. Continue amio loading and rate control. Continue tele monitoring.
[2018-04-03] MEDS: LORazepam 1 MG Tablet PO PRN (14:03)
--- NOTE | 2018-04-03 14:13 | P.PNIM ---
Subjective Interval history: Patient says that chest pain improving. Patient reports drinking 4 double shot vodka drinks per night, equivalent to about 8 beers. He reports alcohol withdrawal symptoms with palpitations, sweats, shakes when he stops drinking. Physical Exam Vital signs: Vital Signs 04/02/18 15:00 04/02/18 16:00 04/02/18 17:00 Temperature 98.5 F Pulse Rate 113 H 116 H 124 H Respiratory Rate 18 Blood Pressure 129/83 Pulse Oximetry 96 04/02/18 18:00 04/02/18 20:00 04/02/18 21:00 Temperature 98.7 F Pulse Rate 119 H 118 H 108 H Respiratory Rate 16 Blood Pressure 142/97 H Pulse Oximetry 99 04/02/18 22:00 04/02/18 23:00 04/03/18 00:00 Temperature Pulse Rate 118 H 120 H 112 H Respiratory Rate 16 Blood Pressure 138/96 H Pulse Oximetry 96 04/03/18 01:00 04/03/18 02:00 04/03/18 03:00 Temperature Pulse Rate 112 H 115 H 106 H Respiratory Rate Blood Pressure Pulse Oximetry 04/03/18 03:25 04/03/18 04:00 04/03/18 05:00 Temperature Pulse Rate 119 H 116 H 117 H Respiratory Rate 16 Blood Pressure 145/89 H Pulse Oximetry 97 04/03/18 06:00 04/03/18 08:00 04/03/18 11:12 Temperature 98.0 F Pulse Rate 120 H 125 H Respiratory Rate Blood Pressure 169/74 H Pulse Oximetry 97 97 04/03/18 11:40 Temperature 98.4 F Pulse Rate 123 H Respiratory Rate 18 Blood Pressure 145/82 H Pulse Oximetry Intake & Output 04/02/18 04/03/18 04/03/18 18:59 06:59 18:59 Intake Total 2330 / 2330 1480 / 1480 1250 / 1250 Output Total 2740 / 2740 1150 / 1150 Balance -410 / -410 330 / 330 1250 / 1250 Weight 135 kg Intake: IV 1250 / 1250 1000 / 1000 1250 / 1250 Cordarone Inj 450 MG In D5W Inj 250 / 250 250 / 250 241 ML @ 1 MG/MIN 33.33 mls/hr IV.CONT TITRATE PRN Rx#: [id number] NS Inj 1,000 ML @ 100 mls/hr IV 1000 / 1000 1000 / 1000 1000 / 1000 .CONT .Q10H [facility] Rx#:[id number] Oral 1080 / 1080 480 / 480 Output: Urine 2740 / 2740 1150 / 1150 Other: Date of Last Bowel Movement 03/30/18 03/30/18 04/02/18 # Bowel Movements 0 Narrative: GENERAL: Patient sitting up in bed. Appears comfortable. SKIN: Warm and dry. HEAD: Normocephalic. EYES: No scleral icterus. No injection or drainage. NECK: Supple, trachea midline. No JVD. CARDIOVASCULAR: Tachycardic. Irregularly irregular rhythm without murmurs, gallops, or rubs. RESPIRATORY: Breath sounds equal bilaterally. No accessory muscle use. GASTROINTESTINAL: Abdomen soft, non-tender, nondistended. MUSCULOSKELETAL: No cyanosis. Marketed, chronic, woody bilateral lower extremity edema. No broken skin BACK: Nontender without obvious deformity. No CVA tenderness. Results - Labs CBC & Chem 7: 04/03/18 05:52 04/03/18 05:52 Laboratory Results - last 24 hr 04/02/18 04/03/18 04/03/18 11:10 05:52 05:52 WBC 2.5 L RBC 4.23 L Hgb 12.0 L Hct 36.9 L MCV 87.2 MCH 28.3 MCHC 32.4 RDW 18.0 H Plt Count 77 L MPV 7.7 Prelim Diff (Auto) Slide review pending Neut % (Auto) 63.2 Lymph % (Auto) 21.4 [place] % (Auto) 10.7 H Eos % (Auto) 4.2 H Baso % (Auto) 0.5 Neut # (Auto) 1.6 L Lymph # (Auto) 0.5 L [place] # (Auto) 0.3 Eos # (Auto) 0.1 Baso # (Auto) 0.0 WBC Differential . Diff Scan Auto diff confirmed Differential Comment . Platelet Estimate Low L Platelet Morphology Normal Ovalocytes 1+ H Sodium 136 Potassium 4.0 Chloride 102 Carbon Dioxide 27.4 Anion Gap 7 BUN 10 Creatinine 1.23 Estimated GFR 61 L Random Glucose 89 Calcium 8.1 L Total Bilirubin 0.6 Direct Bilirubin 0.3 H Indirect Bilirubin 0.3 AST 30 ALT 25 Alkaline Phosphatase 67 Total Protein 7.5 D Albumin 3.0 L HIV 1&2 Ab/P24 Ag 4thGn Nonreactive Assessment and Plan - Plan 52-year-old male with history of A. fib, alcohol dependence, CHF admitted with A. fib with RVR. //A. fib with RVR: - Patient on Amiodarone drip per Cardiology. He is on metoprolol as well. Heart rate not well controlled yet. Defer to cardiology - Continue to monitor on telemetry. - Continue Xarelto. He definitely needs to stop drinking alcohol if he is to remain on blood thinners. 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 = 04/03. Discussed with patient. He will stop drinking alcohol completely. Will start on Librium taper continue CIWA protocol. Cardiology adjusting rate control medications. Appreciate assistance. //Alcohol dependence: - The patient was counseled extensively. - Continue CIWA protocol - Thiamine and folate = 04/03. Discussed with patient. Continue CIWA protocol. Start Librium. //Diastolic CHF exacerbation: Unknown type. - Continue Lasix, continue metoprolol. - Cardiology following. //Chest pain: Could be secondary to A. fib with RVR. - Troponins so far negative. EKG shows A. fib. Cardiology following. - Pain control. CTA neg. //Hypokalemia: Replaced and monitor. //GI prophylaxis: Stool softener PRN constipation. //Generalized psoriasis: Patient needs outpatient follow up with Dermatology for this chronic condition. 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 //DVT PPx: On Xarelto. Discharge Planning: Not medically ready for discharge. Need better heart rate control. Continue care in [facility].
[2018-04-03] MEDS: Metoprolol Tartrate 100 MG Tablet PO SCH (21:23)
[2018-04-04] MEDS: Temazepam 15 MG Capsule PO PRN (02:34)
[2018-04-04] MEDS: Sod Chloride 0.9% Inj 1,000 ML IV.CONT SCH ×2 (08:53→21:11)
[2018-04-04] MEDS: Rivaroxaban 20 MG Tablet PO SCH (08:54)
[2018-04-04] MEDS: Metoprolol Tartrate 100 MG Tablet PO SCH ×2 (08:55→21:11)
[2018-04-04] MEDS: Furosemide 40 MG Tablet PO SCH (08:55)
[2018-04-04] MEDS: Amiodarone 200 MG Tablet PO SCH ×2 (08:59→21:11)
[2018-04-04] MEDS: Sodium Chloride 0.9% 2 ML Flush BID IV.FLUSH SCH ×2 (09:10→23:02)
[2018-04-04 09:52] LABS: Baso % (Auto) 0.5 % (0.0-2.0); Eos # (Auto) 0.1 th/mm3 (0.0-0.4); Eos % (Auto) 3.9 % (0.0-4.0); Hematocrit 38.7 % (39.0-51.0); Hemoglobin 12.8 gm/dL (13.0-17.0); Lymph # (Auto) 0.5 th/mm3 (1.0-4.8); Lymph % (Auto) 17.5 % (9.0-44.0); Mean Corpuscular HGB Conc 33.2 % (32.0-36.0); Mean Corpuscular Hemoglobin 28.9 pg (27.0-34.0); Mean Corpuscular Volume 87.2 fL (80.0-100.0); Mono # (Auto) 0.3 th/mm3 (0.0-0.9); Mono % (Auto) 12.2 % (0.0-8.0); Neut # (Auto) 1.9 th/mm3 (1.8-7.7); Neut % (Auto) 65.9 % (16.0-70.0); Platelet Count 90 th/mm3 (150-450); Red Blood Count 4.43 mil/mm3 (4.50-5.90); Red Cell Distribution Width 18.1 % (11.6-17.2); White Blood Count 2.9 th/mm3 (4.0-11.0)
[2018-04-04 10:08] LABS: Albumin 3.2 g/dL (3.4-5.0); Calcium 8.5 mg/dL (8.5-10.1); Carbon Dioxide 26.4 meq/L (21.0-32.0); Magnesium 2.1 mg/dL (1.5-2.5); Phosphorus 3.8 mg/dL (2.5-4.9)
[2018-04-04 11:38] LABS: Ovalocytes 1+; Platelet Morphology Normal (Normal)
--- NOTE | 2018-04-04 12:32 | P.PNCA ---
Subjective Interval history: Patient denies any CP, palpitations, dizziness or SOB. Patient does complain of mild pressure and edema of the lower extremities. Medications and Allergies Allergies Allergy/AdvReac Type Severity Reaction Status Date / Time No Known Allergies Allergy Verified 03/31/18 05:26 Home Medications Medication Instructions Recorded Confirmed Type furosemide 03/31/18 History Active Medications: Active Medications Al Hydroxide/Mg Hydroxide (Milk Of Magnesia Liq) 30 ml PO Q12H PRN PRN Reason: Mild Constipation Last Admin: 04/04/18 09:08 Dose: 30 ml Albuterol (Ventolin Hfa Inh) 2 puff INH Q6HR [facility] Last Admin: 04/04/18 06:25 Dose: 2 puff Amiodarone HCl (Cordarone) 400 mg PO Q12HR [facility] Stop: 04/13/18 21:00 Last Admin: 04/04/18 08:59 Dose: 400 mg Amiodarone HCl (Cordarone) 200 mg PO DAILY [facility] Bisacodyl (Dulcolax Supp) 10 mg RECTAL DAILY PRN PRN Reason: SEVERE CONSITIPATION Chlordiazepoxide (Librium) 10 mg PO Q8H [facility] Last Admin: 04/04/18 06:25 Dose: 10 mg Diltiazem HCl (Cardizem) 30 mg PO QID [facility] Flumazenil (Romazecon Inj) 0.2 mg IV.PUSH Q1M PRN PRN Reason: OVERSEDATION Furosemide (Lasix) 40 mg PO DAILY [facility] Last Admin: 04/04/18 08:55 Dose: 40 mg Haloperidol Lactate (Haldol Inj) 1 mg IV.PUSH Q15M PRN PRN Reason: for severe agitation Sodium Chloride (Ns Inj) 1,000 mls @ 100 mls/hr IV.CONT .Q10H [facility] Last Admin: 04/04/18 08:53 Dose: 100 mls/hr Lactulose (Lactulose Liq) 30 ml PO DAILY PRN PRN Reason: SEVERE CONSITIPATION Lorazepam (Ativan) 1 mg PO Q4H PRN PRN Reason: for CIWA 8-10 Last Admin: 04/03/18 14:03 Dose: 1 mg Lorazepam (Ativan Inj) 2 mg IV.PUSH Q2H PRN PRN Reason: for CIWA 11-14 Last Admin: 03/31/18 14:20 Dose: 2 mg Lorazepam (Ativan Inj) 2 mg IV.PUSH Q1H PRN PRN Reason: for CIWA 15-20 Last Admin: 04/01/18 03:00 Dose: 2 mg Lorazepam (Ativan Inj) 2 mg IV.PUSH Q15M PRN PRN Reason: for CIWA > 20 Lorazepam (Ativan Inj) 1 mg IV.PUSH Q4H PRN PRN Reason: for CIWA 8-10 Lorazepam (Ativan) 2 mg PO Q2H PRN PRN Reason: for CIWA 11-14 Last Admin: 04/04/18 09:02 Dose: 2 mg Metoprolol Tartrate (Lopressor) 100 mg PO BID [facility] Last Admin: 04/04/18 08:55 Dose: 100 mg Morphine Sulfate (Morphine Inj) 4 mg IV.PUSH Q4H PRN PRN Reason: BREAKTHROUGH PAIN Last Admin: 04/01/18 20:32 Dose: 4 mg Oxycodone/Acetaminophen (Percocet 5/325 Mg) 1 tab PO Q4H PRN PRN Reason: PAIN SCALE 6 TO 10 Last Admin: 04/03/18 04:45 Dose: 1 tab Pantoprazole Sodium (Protonix) 40 mg PO DAILY [facility] Last Admin: 04/04/18 08:55 Dose: 40 mg Potassium Chloride (Klor-Con 10) 30 meq PO DAILY [facility] Last Admin: 04/04/18 08:55 Dose: 30 meq Rivaroxaban (Xarelto) 20 mg PO DAILY [facility] Last Admin: 04/04/18 08:54 Dose: 20 mg Sennosides (Senokot) 17.2 mg PO Q12H PRN PRN Reason: Moderate Constipation Sodium Chloride (Ns Flush) 2 ml IV.FLUSH BID [facility] Last Admin: 04/03/18 21:24 Dose: Not Given Sodium Chloride (Ns Flush) 2 ml IV.FLUSH PRN PRN PRN Reason: FLUSH AFTER USING IV ACCESS Temazepam (Restoril) 15 mg PO HS PRN PRN Reason: INSOMNIA Last Admin: 04/04/18 02:34 Dose: 15 mg Physical Exam Vital signs: Vital Signs 04/03/18 13:00 04/03/18 14:00 04/03/18 15:00 Temperature Pulse Rate 113 H 115 H 122 H Respiratory Rate Blood Pressure Pulse Oximetry 04/03/18 16:00 04/03/18 18:00 04/03/18 19:00 Temperature 98.7 F Pulse Rate 128 H 131 H 124 H Respiratory Rate 20 Blood Pressure 146/86 H Pulse Oximetry 97 04/03/18 20:00 04/03/18 21:00 04/03/18 22:00 Temperature 97.8 F Pulse Rate 111 H 125 H 108 H Respiratory Rate 16 Blood Pressure 146/86 H Pulse Oximetry 97 04/03/18 23:00 04/03/18 23:44 04/04/18 00:00 Temperature Pulse Rate 108 H 110 H 108 H Respiratory Rate 16 Blood Pressure 156/99 H Pulse Oximetry 96 04/04/18 01:00 04/04/18 02:00 04/04/18 03:00 Temperature Pulse Rate 112 H 115 H 114 H Respiratory Rate Blood Pressure Pulse Oximetry 04/04/18 04:00 04/04/18 05:00 04/04/18 06:00 Temperature Pulse Rate 111 H 108 H 111 H Respiratory Rate 18 Blood Pressure 149/93 H Pulse Oximetry 95 04/04/18 07:00 04/04/18 08:00 04/04/18 09:09 Temperature 98.9 F Pulse Rate 122 H 129 H Respiratory Rate 18 Blood Pressure 154/90 H Pulse Oximetry 94 L Intake & Output 04/03/18 04/04/18 04/04/18 18:59 06:59 18:59 Intake Total 2330 / 2330 1586 / 1586 1000 / 1000 Output Total 3050 / 3050 1000 / 1000 Balance -720 / -720 586 / 586 1000 / 1000 Weight 135 kg Intake: IV 1250 / 1250 1106 / 1106 1000 / 1000 Cordarone Inj 450 MG In D5W Inj 250 / 250 106 / 106 241 ML @ 1 MG/MIN 33.33 mls/hr IV.CONT TITRATE PRN Rx#: [id number] NS Inj 1,000 ML @ 100 mls/hr IV 1000 / 1000 1000 / 1000 1000 / 1000 .CONT .Q10H [facility] Rx#:[id number] Oral 1080 / 1080 480 / 480 Output: Urine 3050 / 3050 1000 / 1000 Other: Date of Last Bowel Movement 04/02/18 03/30/18 03/30/18 # Bowel Movements 0 - Constitutional no acute distress - Routine HEENT Exam Head: Present: normocephalic Eye: Present: PERRL ENT: Present: mucous membranes moist - Routine Neck Exam Present: full ROM - Routine Respiratory Exam Present: CTA bilaterally - Routine Cardiovascular Exam Present: S1, S2, irregular rhythm - Routine Abdominal Exam Present: normoactive bowel sounds - Routine Extremities Exam Present: edema, full ROM. Absent: cyanosis, clubbing Comments: Wound on lower legs and feet bilateral - Routine Skin Exam Present: lesions, wounds, ecchymosis - Routine Neurological Exam Present: oriented X3 - Detailed Neurological Exam: Coma Scale Eye Opening: Spontaneous Verbal Response: Oriented Motor Response: Obey commands Ollie Coma Scale Total: 15 - Routine Psychiatric Exam Present: normal affect Results 04/04/18 08:01 04/04/18 08:01 Cardiac Enzymes 04/03/18 Range/Units 05:52 AST 30 (15-37) U/L CBC 04/03/18 04/04/18 Range/Units 05:52 08:01 WBC 2.5 L 2.9 L (4.0-11.0) th/mm3 RBC 4.23 L 4.43 L (4.50-5.90) mil/mm3 Hgb 12.0 L 12.8 L (13.0-17.0) gm/dL Hct 36.9 L 38.7 L (39.0-51.0) % Plt Count 77 L 90 L (150-450) th/mm3 Neut # (Auto) 1.6 L 1.9 (1.8-7.7) th/mm3 Lymph # (Auto) 0.5 L 0.5 L (1.0-4.8) th/mm3 [place] # (Auto) 0.3 0.3 (0.0-0.9) th/mm3 Eos # (Auto) 0.1 0.1 (0.0-0.4) th/mm3 Baso # (Auto) 0.0 0.0 (0.0-0.2) th/mm3 Comprehensive Metabolic Panel 04/03/18 04/04/18 Range/Units 05:52 08:01 Sodium 136 135 L (136-145) meq/L Potassium 4.0 4.0 (3.5-5.1) meq/L Chloride 102 100 (98-107) meq/L Carbon Dioxide 27.4 26.4 (21.0-32.0) meq/L BUN 10 10 (7-18) mg/dL Creatinine 1.23 1.14 (0.60-1.30) mg/dL Calcium 8.1 L 8.5 (8.5-10.1) mg/dL Direct Bilirubin 0.3 H (0.0-0.2) mg/dL Indirect Bilirubin 0.3 (0.0-0.8) mg/dL AST 30 (15-37) U/L ALT 25 (12-78) U/L Alkaline Phosphatase 67 (45-117) U/L Total Protein 7.5 D (6.4-8.2) g/dL Albumin 3.0 L 3.2 L (3.4-5.0) g/dL Intake and Output 04/03/18 04/04/18 04/04/18 22:59 06:59 14:59 Intake Total 1186 / 1186 1480 / 1480 1000 / 1000 Output Total 3050 / 3050 1000 / 1000 Balance -1864 / -1864 480 / 480 1000 / 1000 Intake: IV 106 / 106 1000 / 1000 1000 / 1000 Cordarone Inj 450 MG In D5W Inj 106 / 106 241 ML @ 1 MG/MIN 33.33 mls/hr IV.CONT TITRATE PRN Rx#: [id number] NS Inj 1,000 ML @ 100 mls/hr IV 1000 / 1000 1000 / 1000 .CONT .Q10H [facility] Rx#:[id number] Oral 1080 / 1080 480 / 480 Output: Urine 3050 / 3050 1000 / 1000 Other: Date of Last Bowel Movement 03/30/18 03/30/18 03/30/18 # Bowel Movements 0 Weight 135 kg Assessment and Plan - Assessment (1) Atrial fibrillation Code(s): I48.91 - Unspecified atrial fibrillation Status: Acute (2) Chest pain Code(s): R07.9 - Chest pain, unspecified Status: Acute (3) SOB (shortness of breath) Code(s): R06.02 - Shortness of breath Status: Acute (4) Hypertension Code(s): I10 - Essential (primary) hypertension Status: Acute (5) Alcohol withdrawal Code(s): F10.239 - Alcohol dependence with withdrawal, unspecified Status: Acute (6) Psoriasis Code(s): L40.9 - Psoriasis, unspecified Status: Acute - Plan We will continue Amiodarone loading and place patient on low dose diltiazem. We will continue Metoprolol for rate control. We recommend evaluation for sleep apnea. Increase activity as patient tolerates. Continue to monitor patient on telemetry. Continue management for ETOH withdrawal. Dr. Byrne will see tomorrow. Patient seen and evaluated by Dr. Falk who participated in care, management and decision making. - Attending Attestation Patient seen and examined. I reviewed and agree with the evaluation and plan as presented. Continue amio loading and rate control. Anticoagulation with Xarelto. Dr. Byrne will take over his care tomorrow.
--- NOTE | 2018-04-04 12:38 | P.PNIM ---
Subjective Interval history: Patient says he is feeling right. Denies any chest pain. Denies shortness of breath. Heart rate continues to spike up to the 160s intermittently, however is in the 100s upon entering the room Physical Exam Vital signs: Vital Signs 04/03/18 13:00 04/03/18 14:00 04/03/18 15:00 Temperature Pulse Rate 113 H 115 H 122 H Respiratory Rate Blood Pressure Pulse Oximetry 04/03/18 16:00 04/03/18 18:00 04/03/18 19:00 Temperature 98.7 F Pulse Rate 128 H 131 H 124 H Respiratory Rate 20 Blood Pressure 146/86 H Pulse Oximetry 97 04/03/18 20:00 04/03/18 21:00 04/03/18 22:00 Temperature 97.8 F Pulse Rate 111 H 125 H 108 H Respiratory Rate 16 Blood Pressure 146/86 H Pulse Oximetry 97 04/03/18 23:00 04/03/18 23:44 04/04/18 00:00 Temperature Pulse Rate 108 H 110 H 108 H Respiratory Rate 16 Blood Pressure 156/99 H Pulse Oximetry 96 04/04/18 01:00 04/04/18 02:00 04/04/18 03:00 Temperature Pulse Rate 112 H 115 H 114 H Respiratory Rate Blood Pressure Pulse Oximetry 04/04/18 04:00 04/04/18 05:00 04/04/18 06:00 Temperature Pulse Rate 111 H 108 H 111 H Respiratory Rate 18 Blood Pressure 149/93 H Pulse Oximetry 95 04/04/18 07:00 04/04/18 08:00 04/04/18 09:09 Temperature 98.9 F Pulse Rate 122 H 129 H Respiratory Rate 18 Blood Pressure 154/90 H Pulse Oximetry 94 L Intake & Output 04/03/18 04/04/18 04/04/18 18:59 06:59 18:59 Intake Total 2330 / 2330 1586 / 1586 1000 / 1000 Output Total 3050 / 3050 1000 / 1000 Balance -720 / -720 586 / 586 1000 / 1000 Weight 135 kg Intake: IV 1250 / 1250 1106 / 1106 1000 / 1000 Cordarone Inj 450 MG In D5W Inj 250 / 250 106 / 106 241 ML @ 1 MG/MIN 33.33 mls/hr IV.CONT TITRATE PRN Rx#: [id number] NS Inj 1,000 ML @ 100 mls/hr IV 1000 / 1000 1000 / 1000 1000 / 1000 .CONT .Q10H [facility] Rx#:[id number] Oral 1080 / 1080 480 / 480 Output: Urine 3050 / 3050 1000 / 1000 Other: Date of Last Bowel Movement 04/02/18 03/30/18 03/30/18 # Bowel Movements 0 Narrative: GENERAL: Patient sitting up in bed. Appears comfortable. Sleeping, wakes up for exam SKIN: Warm and dry. HEAD: Normocephalic. EYES: No scleral icterus. No injection or drainage. NECK: Supple, trachea midline. No JVD. CARDIOVASCULAR: Tachycardic. Irregularly irregular rhythm without murmurs, gallops, or rubs. RESPIRATORY: Breath sounds equal bilaterally. No accessory muscle use. GASTROINTESTINAL: Abdomen soft, non-tender, nondistended. MUSCULOSKELETAL: No cyanosis. Marketed, chronic, woody bilateral lower extremity edema. No broken skin BACK: Nontender without obvious deformity. No CVA tenderness. Results - Labs CBC & Chem 7: 04/04/18 08:01 04/04/18 08:01 Laboratory Results - last 24 hr 04/04/18 04/04/18 08:01 08:01 WBC 2.9 L RBC 4.43 L Hgb 12.8 L Hct 38.7 L MCV 87.2 MCH 28.9 MCHC 33.2 RDW 18.1 H Plt Count 90 L MPV 8.0 Prelim Diff (Auto) Slide review pending Neut % (Auto) 65.9 Lymph % (Auto) 17.5 [place] % (Auto) 12.2 H Eos % (Auto) 3.9 Baso % (Auto) 0.5 Neut # (Auto) 1.9 Lymph # (Auto) 0.5 L [place] # (Auto) 0.3 Eos # (Auto) 0.1 Baso # (Auto) 0.0 WBC Differential . Diff Scan Auto diff confirmed Differential Comment . Platelet Estimate Low L Platelet Morphology Normal Ovalocytes 1+ H Sodium 135 L Potassium 4.0 Chloride 100 Carbon Dioxide 26.4 Anion Gap 9 BUN 10 Creatinine 1.14 Estimated GFR 67 L Random Glucose 81 Calcium 8.5 Phosphorus 3.8 Magnesium 2.1 Albumin 3.2 L Assessment and Plan - Plan 52-year-old male with history of A. fib, alcohol dependence, CHF admitted with A. fib with RVR. //A. fib with RVR: - Patient on Amiodarone drip per Cardiology. He is on metoprolol as well. Heart rate not well controlled yet. Defer to cardiology - Continue to monitor on telemetry. - Continue Xarelto. He definitely needs to stop drinking alcohol if he is to remain on blood thinners. 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 = 04/03. Discussed with patient. He will stop drinking alcohol completely. Will start on Librium taper continue CIWA protocol. Cardiology adjusting rate control medications. Appreciate assistance. = 04/04. Still with elevated heart rate. Diltiazem added by cardiology. Appreciate cardiology assistance. Continue Librium. Will need to be tapered at discharge. //Alcohol dependence: - The patient was counseled extensively. - Continue CIWA protocol - Thiamine and folate = 04/03. Discussed with patient. Continue CIWA protocol. Start Librium. //Diastolic CHF exacerbation: Unknown type. - Continue Lasix, continue metoprolol. - Cardiology following. //Chest pain: Could be secondary to A. fib with RVR. - Troponins so far negative. EKG shows A. fib. Cardiology following. - Pain control. CTA neg. //Hypokalemia: Replaced and monitor. //GI prophylaxis: Stool softener PRN constipation. //Generalized psoriasis: Patient needs outpatient follow up with Dermatology for this chronic condition. 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 //DVT PPx: On Xarelto. Discharge Planning: Not medically ready for discharge. Need better heart rate control. Continue care in [facility]. Hopefully discharge in the next 1-2 days when heart rate is controlled.
[2018-04-04] MEDS: dilTIAZem 30 MG Tablet PO SCH ×3 (13:37→21:10)
[2018-04-04 14:34] LABS: Hemoglobin A1c 5.2 % (4.3-6.0)
[2018-04-04] MEDS: LORazepam 1 MG Tablet PO PRN (21:16)
[2018-04-05] MEDS: Sod Chloride 0.9% Inj 1,000 ML IV.CONT SCH (05:18)
[2018-04-05] MEDS: Metoprolol Tartrate 100 MG Tablet PO SCH ×2 (10:54→20:59)
[2018-04-05] MEDS: dilTIAZem 30 MG Tablet PO SCH ×2 (10:54→14:22)
[2018-04-05] MEDS: Furosemide 40 MG Tablet PO SCH (10:54)
[2018-04-05] MEDS: Amiodarone 200 MG Tablet PO SCH ×2 (10:55→20:58)
[2018-04-05] MEDS: Sodium Chloride 0.9% 2 ML Flush BID IV.FLUSH SCH ×2 (10:55→20:59)
[2018-04-05] MEDS: Rivaroxaban 20 MG Tablet PO SCH (10:55)
--- NOTE | 2018-04-05 13:40 | P.PNIM ---
Subjective Interval history: Patient denies any chest pain or shortness of breath. Denies nausea or vomiting. Says he feels comfortable. Physical Exam Vital signs: Vital Signs 04/04/18 14:00 04/04/18 15:00 04/04/18 16:00 Temperature 99.0 F Pulse Rate 120 H 120 H 118 H Respiratory Rate Blood Pressure 129/95 H Pulse Oximetry 04/04/18 17:00 04/04/18 18:00 04/04/18 19:00 Temperature Pulse Rate 94 H 116 H 126 H Respiratory Rate Blood Pressure Pulse Oximetry 04/04/18 20:00 04/04/18 21:00 04/04/18 22:00 Temperature 98.8 F Pulse Rate 120 H 121 H 114 H Respiratory Rate 16 Blood Pressure 146/88 H Pulse Oximetry 99 04/04/18 23:00 04/05/18 00:00 04/05/18 01:00 Temperature Pulse Rate 104 H 89 119 H Respiratory Rate 16 Blood Pressure 139/82 Pulse Oximetry 96 04/05/18 02:00 04/05/18 03:00 04/05/18 04:00 Temperature Pulse Rate 99 H 103 H 97 H Respiratory Rate Blood Pressure Pulse Oximetry 04/05/18 05:00 04/05/18 05:24 04/05/18 06:00 Temperature Pulse Rate 87 98 H 96 H Respiratory Rate 16 Blood Pressure 154/99 H Pulse Oximetry 96 04/05/18 07:00 04/05/18 08:00 04/05/18 09:00 Temperature 98.5 F Pulse Rate 90 90 102 H Respiratory Rate 18 Blood Pressure 138/91 H Pulse Oximetry 100 04/05/18 10:00 04/05/18 11:00 04/05/18 12:00 Temperature Pulse Rate 100 H 110 H 110 H Respiratory Rate Blood Pressure Pulse Oximetry Intake & Output 04/04/18 04/05/18 04/05/18 18:59 06:59 18:59 Intake Total 3000 / 3000 1700 / 1700 Output Total 2950 / 2950 1900 / 1900 Balance 50 / 50 -200 / -200 Weight 134.7 kg Intake: IV 1999 / 1999 1000 / 1000 NS Inj 1,000 ML @ 100 mls/hr IV 1999 / 1999 1000 / 1000 .CONT .Q10H [facility] Rx#:[id number] Oral 1000 / 1000 700 / 700 Output: Urine 2950 / 2950 1900 / 1900 Other: Date of Last Bowel Movement 04/04/18 03/30/18 03/30/18 # Bowel Movements 3 0 Narrative: GENERAL: Patient sitting up in bed. Appears comfortable. Sleeping, wakes up for exam. Alert and oriented x3. SKIN: Warm and dry. HEAD: Normocephalic. EYES: No scleral icterus. No injection or drainage. NECK: Supple, trachea midline. No JVD. CARDIOVASCULAR: Tachycardic. Irregularly irregular rhythm without murmurs, gallops, or rubs. RESPIRATORY: Breath sounds equal bilaterally. No accessory muscle use. GASTROINTESTINAL: Abdomen soft, non-tender, nondistended. MUSCULOSKELETAL: No cyanosis. Marketed, chronic, woody bilateral lower extremity edema. No broken skin BACK: Nontender without obvious deformity. No CVA tenderness. Results - Labs CBC & Chem 7: 04/04/18 08:01 04/04/18 08:01 Laboratory Results - last 24 hr 04/03/18 05:52 Hemoglobin A1c 5.2 Assessment and Plan - Plan 52-year-old male with history of A. fib, alcohol dependence, CHF admitted with A. fib with RVR. //A. fib with RVR: - Patient on Amiodarone drip per Cardiology. He is on metoprolol as well. Heart rate not well controlled yet. Defer to cardiology - Continue to monitor on telemetry. - Continue Xarelto. He definitely needs to stop drinking alcohol if he is to remain on blood thinners. 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 = 04/03. Discussed with patient. He will stop drinking alcohol completely. Will start on Librium taper continue CIWA protocol. Cardiology adjusting rate control medications. Appreciate assistance. = 04/04. Still with elevated heart rate. Diltiazem added by cardiology. Appreciate cardiology assistance. Continue Librium. Will need to be tapered at discharge. = 04/05. Still with elevated heart rate up to 120s. Follow-up cardiology recommendations. Continues on metoprolol and diltiazem. Continues on treatment for alcohol withdrawal with scheduled Librium. Does not appear to be in active withdrawal. //Alcohol dependence: - The patient was counseled extensively. - Continue CIWA protocol - Thiamine and folate = 04/03. Discussed with patient. Continue CIWA protocol. Start Librium. = Withdrawal controlled on Librium. We will plan to taper at discharge. //Diastolic CHF exacerbation: Unknown type. - Continue Lasix, continue metoprolol. - Cardiology following. //Chest pain: Could be secondary to A. fib with RVR. - Troponins so far negative. EKG shows A. fib. Cardiology following. - Pain control. CTA neg. //Hypokalemia: Replaced and monitor. //GI prophylaxis: Stool softener PRN constipation. //Generalized psoriasis: Patient needs outpatient follow up with Dermatology for this chronic condition. 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 //DVT PPx: On Xarelto. Discharge Planning: Not medically ready for discharge. Need better heart rate control. Continue care in [facility]. Hopefully discharge in the next 1-2 days when heart rate is controlled.
--- NOTE | 2018-04-05 13:47 | P.PNCA ---
Subjective Interval history: Patient sitting in bed, reports he is feeling better. Still has occasional fluttering/discomfort in heart.HR improved on telemetry, 90-120s. Medications and Allergies Active Medications: Active Medications Al Hydroxide/Mg Hydroxide (Milk Of Magnesia Liq) 30 ml PO Q12H PRN PRN Reason: Mild Constipation Last Admin: 04/04/18 09:08 Dose: 30 ml Albuterol (Ventolin Hfa Inh) 2 puff INH Q6HR [facility] Last Admin: 04/05/18 06:30 Dose: 2 puff Amiodarone HCl (Cordarone) 400 mg PO Q12HR [facility] Stop: 04/13/18 21:00 Last Admin: 04/05/18 10:55 Dose: 400 mg Amiodarone HCl (Cordarone) 200 mg PO DAILY [facility] Bisacodyl (Dulcolax Supp) 10 mg RECTAL DAILY PRN PRN Reason: SEVERE CONSITIPATION Chlordiazepoxide (Librium) 10 mg PO Q8H [facility] Last Admin: 04/05/18 06:28 Dose: 10 mg Diltiazem HCl (Cardizem) 30 mg PO QID [facility] Last Admin: 04/05/18 10:54 Dose: 30 mg Flumazenil (Romazecon Inj) 0.2 mg IV.PUSH Q1M PRN PRN Reason: OVERSEDATION Furosemide (Lasix) 40 mg PO DAILY [facility] Last Admin: 04/05/18 10:54 Dose: 40 mg Haloperidol Lactate (Haldol Inj) 1 mg IV.PUSH Q15M PRN PRN Reason: for severe agitation Lactulose (Lactulose Liq) 30 ml PO DAILY PRN PRN Reason: SEVERE CONSITIPATION Lorazepam (Ativan) 1 mg PO Q4H PRN PRN Reason: for CIWA 8-10 Last Admin: 04/04/18 21:16 Dose: 1 mg Lorazepam (Ativan Inj) 2 mg IV.PUSH Q2H PRN PRN Reason: for CIWA 11-14 Last Admin: 03/31/18 14:20 Dose: 2 mg Lorazepam (Ativan Inj) 2 mg IV.PUSH Q1H PRN PRN Reason: for CIWA 15-20 Last Admin: 04/01/18 03:00 Dose: 2 mg Lorazepam (Ativan Inj) 2 mg IV.PUSH Q15M PRN PRN Reason: for CIWA > 20 Lorazepam (Ativan Inj) 1 mg IV.PUSH Q4H PRN PRN Reason: for CIWA 8-10 Lorazepam (Ativan) 2 mg PO Q2H PRN PRN Reason: for CIWA 11-14 Last Admin: 04/04/18 09:02 Dose: 2 mg Metoprolol Tartrate (Lopressor) 100 mg PO BID [facility] Last Admin: 04/05/18 10:54 Dose: 100 mg Morphine Sulfate (Morphine Inj) 4 mg IV.PUSH Q4H PRN PRN Reason: BREAKTHROUGH PAIN Last Admin: 04/01/18 20:32 Dose: 4 mg Oxycodone/Acetaminophen (Percocet 5/325 Mg) 1 tab PO Q4H PRN PRN Reason: PAIN SCALE 6 TO 10 Last Admin: 04/03/18 04:45 Dose: 1 tab Pantoprazole Sodium (Protonix) 40 mg PO DAILY [facility] Last Admin: 04/05/18 10:54 Dose: 40 mg Potassium Chloride (Klor-Con 10) 30 meq PO DAILY [facility] Last Admin: 04/05/18 10:55 Dose: 30 meq Rivaroxaban (Xarelto) 20 mg PO DAILY [facility] Last Admin: 04/05/18 10:55 Dose: 20 mg Sennosides (Senokot) 17.2 mg PO Q12H PRN PRN Reason: Moderate Constipation Sodium Chloride (Ns Flush) 2 ml IV.FLUSH BID [facility] Last Admin: 04/05/18 10:55 Dose: 2 ml Sodium Chloride (Ns Flush) 2 ml IV.FLUSH PRN PRN PRN Reason: FLUSH AFTER USING IV ACCESS Temazepam (Restoril) 15 mg PO HS PRN PRN Reason: INSOMNIA Last Admin: 04/04/18 02:34 Dose: 15 mg Allergies Allergy/AdvReac Type Severity Reaction Status Date / Time No Known Allergies Allergy Verified 03/31/18 05:26 Home Medications Medication Instructions Recorded Confirmed Type furosemide 03/31/18 History Physical Exam Vital signs: Vital Signs 04/04/18 14:00 04/04/18 15:00 04/04/18 16:00 Temperature 99.0 F Pulse Rate 120 H 120 H 118 H Respiratory Rate Blood Pressure 129/95 H Pulse Oximetry 04/04/18 17:00 04/04/18 18:00 04/04/18 19:00 Temperature Pulse Rate 94 H 116 H 126 H Respiratory Rate Blood Pressure Pulse Oximetry 04/04/18 20:00 04/04/18 21:00 04/04/18 22:00 Temperature 98.8 F Pulse Rate 120 H 121 H 114 H Respiratory Rate 16 Blood Pressure 146/88 H Pulse Oximetry 99 04/04/18 23:00 04/05/18 00:00 04/05/18 01:00 Temperature Pulse Rate 104 H 89 119 H Respiratory Rate 16 Blood Pressure 139/82 Pulse Oximetry 96 04/05/18 02:00 04/05/18 03:00 04/05/18 04:00 Temperature Pulse Rate 99 H 103 H 97 H Respiratory Rate Blood Pressure Pulse Oximetry 04/05/18 05:00 04/05/18 05:24 04/05/18 06:00 Temperature Pulse Rate 87 98 H 96 H Respiratory Rate 16 Blood Pressure 154/99 H Pulse Oximetry 96 04/05/18 07:00 04/05/18 08:00 04/05/18 09:00 Temperature 98.5 F Pulse Rate 90 90 102 H Respiratory Rate 18 Blood Pressure 138/91 H Pulse Oximetry 100 04/05/18 10:00 04/05/18 11:00 04/05/18 12:00 Temperature Pulse Rate 100 H 110 H 110 H Respiratory Rate Blood Pressure Pulse Oximetry Intake & Output 04/04/18 04/05/18 04/05/18 18:59 06:59 18:59 Intake Total 3000 / 3000 1700 / 1700 Output Total 2950 / 2950 1900 / 1900 Balance 50 / 50 -200 / -200 Weight 134.7 kg Intake: IV 1999 / 1999 1000 / 1000 NS Inj 1,000 ML @ 100 mls/hr IV 1999 / 1999 1000 / 1000 .CONT .Q10H [facility] Rx#:[id number] Oral 1000 / 1000 700 / 700 Output: Urine 2950 / 2950 1900 / 1900 Other: Date of Last Bowel Movement 04/04/18 03/30/18 03/30/18 # Bowel Movements 3 0 - Constitutional no acute distress, obese - Routine HEENT Exam Head: Present: normocephalic Eye: Present: normal accommodation ENT: Present: mucous membranes moist - Routine Neck Exam Present: supple - Routine Respiratory Exam Present: diminished air movement - Routine Cardiovascular Exam Present: tachycardia, irregularly irregular - Routine Abdominal Exam Present: soft - Routine Skin Exam Present: dry, lesions, scars, rash, cracked - Routine Neurological Exam Present: alert, oriented X3 - Detailed Neurological Exam: Coma Scale Eye Opening: Spontaneous Verbal Response: Oriented Motor Response: Obey commands [place] Coma Scale Total: 15 - Routine Psychiatric Exam Present: normal affect Results 04/04/18 08:01 04/04/18 08:01 CBC 04/04/18 Range/Units 08:01 WBC 2.9 L (4.0-11.0) th/mm3 RBC 4.43 L (4.50-5.90) mil/mm3 Hgb 12.8 L (13.0-17.0) gm/dL Hct 38.7 L (39.0-51.0) % Plt Count 90 L (150-450) th/mm3 Neut # (Auto) 1.9 (1.8-7.7) th/mm3 Lymph # (Auto) 0.5 L (1.0-4.8) th/mm3 [place] # (Auto) 0.3 (0.0-0.9) th/mm3 Eos # (Auto) 0.1 (0.0-0.4) th/mm3 Baso # (Auto) 0.0 (0.0-0.2) th/mm3 Comprehensive Metabolic Panel 04/04/18 Range/Units 08:01 Sodium 135 L (136-145) meq/L Potassium 4.0 (3.5-5.1) meq/L Chloride 100 (98-107) meq/L Carbon Dioxide 26.4 (21.0-32.0) meq/L BUN 10 (7-18) mg/dL Creatinine 1.14 (0.60-1.30) mg/dL Calcium 8.5 (8.5-10.1) mg/dL Albumin 3.2 L (3.4-5.0) g/dL Intake and Output 04/04/18 04/05/18 04/05/18 22:59 06:59 14:59 Intake Total 1999 / 1999 1700 / 1700 Output Total 2950 / 2950 1900 / 1900 Balance -950 / -950 -200 / -200 Intake: IV 1000 / 1000 1000 / 1000 NS Inj 1,000 ML @ 100 mls/hr IV 1000 / 1000 1000 / 1000 .CONT .Q10H [facility] Rx#:[id number] Oral 1000 / 1000 700 / 700 Output: Urine 2950 / 2950 1900 / 1900 Other: Date of Last Bowel Movement 03/30/18 03/30/18 03/30/18 # Bowel Movements 3 0 Weight 134.7 kg Assessment and Plan - Plan Assessment Atrial fibrillation Chest pain Hypokalemia, hyponatremia SOB HTN Alcohol withdrawal Psoriasis Plan On Xarelto. HR improved. We will continue Amiodarone loading. Continues on diltiazem and metoprolol. May consider outpatient cardioversion. CTA negative for PE. Pt had a negative low risk study nuclear stress test 2017. He denies any exertional chest pain. Troponin negative. CIWA protocol ordered per attending. Now on lithium. We recommend evaluation for sleep apnea. PT ordered. If HR remains stable will plan to DC home tomorrow, with a plan to follow up in 1-2 weeks to discuss further workup. The patient was seen and evaluated by Dr. Byrne who participated in care management and decision making. Code Status: Full Code Discussed Condition With: SARAH
[2018-04-05] MEDS: dilTIAZem CD 120 MG Capsule PO SCH (14:17)
[2018-04-05] MEDS: LORazepam 1 MG Tablet PO PRN (17:55)
--- NOTE | 2018-04-06 09:30 | P.PNCA ---
Subjective Interval history: Pt sitting up in bed, denies any complaints. HR stable overnight, no CP or increased SOB. Medications and Allergies Active Medications: Active Medications Al Hydroxide/Mg Hydroxide (Milk Of Magnesia Liq) 30 ml PO Q12H PRN PRN Reason: Mild Constipation Last Admin: 04/04/18 09:08 Dose: 30 ml Albuterol (Ventolin Hfa Inh) 2 puff INH Q6HR [facility] Last Admin: 04/06/18 07:24 Dose: 2 puff Amiodarone HCl (Cordarone) 400 mg PO Q12HR [facility] Stop: 04/13/18 21:00 Last Admin: 04/05/18 20:58 Dose: 400 mg Amiodarone HCl (Cordarone) 200 mg PO DAILY [facility] Bisacodyl (Dulcolax Supp) 10 mg RECTAL DAILY PRN PRN Reason: SEVERE CONSITIPATION Chlordiazepoxide (Librium) 10 mg PO Q8H [facility] Last Admin: 04/06/18 07:14 Dose: 10 mg Diltiazem HCl (Cardizem Cd 24hr) 120 mg PO DAILY [facility] Last Admin: 04/05/18 14:17 Dose: 120 mg Flumazenil (Romazecon Inj) 0.2 mg IV.PUSH Q1M PRN PRN Reason: OVERSEDATION Furosemide (Lasix) 40 mg PO DAILY [facility] Last Admin: 04/05/18 10:54 Dose: 40 mg Haloperidol Lactate (Haldol Inj) 1 mg IV.PUSH Q15M PRN PRN Reason: for severe agitation Lactulose (Lactulose Liq) 30 ml PO DAILY PRN PRN Reason: SEVERE CONSITIPATION Lorazepam (Ativan) 1 mg PO Q4H PRN PRN Reason: for CIWA 8-10 Last Admin: 04/05/18 17:55 Dose: 1 mg Lorazepam (Ativan Inj) 2 mg IV.PUSH Q2H PRN PRN Reason: for CIWA 11-14 Last Admin: 03/31/18 14:20 Dose: 2 mg Lorazepam (Ativan Inj) 2 mg IV.PUSH Q1H PRN PRN Reason: for CIWA 15-20 Last Admin: 04/01/18 03:00 Dose: 2 mg Lorazepam (Ativan Inj) 2 mg IV.PUSH Q15M PRN PRN Reason: for CIWA > 20 Lorazepam (Ativan Inj) 1 mg IV.PUSH Q4H PRN PRN Reason: for CIWA 8-10 Lorazepam (Ativan) 2 mg PO Q2H PRN PRN Reason: for CIWA 11-14 Last Admin: 04/04/18 09:02 Dose: 2 mg Metoprolol Tartrate (Lopressor) 100 mg PO BID [facility] Last Admin: 04/05/18 20:59 Dose: 100 mg Morphine Sulfate (Morphine Inj) 4 mg IV.PUSH Q4H PRN PRN Reason: BREAKTHROUGH PAIN Last Admin: 04/01/18 20:32 Dose: 4 mg Oxycodone/Acetaminophen (Percocet 5/325 Mg) 1 tab PO Q4H PRN PRN Reason: PAIN SCALE 6 TO 10 Last Admin: 04/06/18 03:09 Dose: 1 tab Pantoprazole Sodium (Protonix) 40 mg PO DAILY [facility] Last Admin: 04/05/18 10:54 Dose: 40 mg Potassium Chloride (Klor-Con 10) 30 meq PO DAILY [facility] Last Admin: 04/05/18 10:55 Dose: 30 meq Rivaroxaban (Xarelto) 20 mg PO DAILY [facility] Last Admin: 04/05/18 10:55 Dose: 20 mg Sennosides (Senokot) 17.2 mg PO Q12H PRN PRN Reason: Moderate Constipation Sodium Chloride (Ns Flush) 2 ml IV.FLUSH BID [facility] Last Admin: 04/05/18 20:59 Dose: 2 ml Sodium Chloride (Ns Flush) 2 ml IV.FLUSH PRN PRN PRN Reason: FLUSH AFTER USING IV ACCESS Temazepam (Restoril) 15 mg PO HS PRN PRN Reason: INSOMNIA Last Admin: 04/04/18 02:34 Dose: 15 mg Allergies Allergy/AdvReac Type Severity Reaction Status Date / Time No Known Allergies Allergy Verified 03/31/18 05:26 Home Medications Medication Instructions Recorded Confirmed Type furosemide 03/31/18 History Physical Exam Vital signs: Vital Signs 04/05/18 10:00 04/05/18 11:00 04/05/18 12:00 Temperature Pulse Rate 100 H 110 H 100 H Respiratory Rate 20 Blood Pressure 122/88 Pulse Oximetry 99 04/05/18 13:00 04/05/18 14:00 04/05/18 15:00 Temperature Pulse Rate 100 H 92 H 100 H Respiratory Rate Blood Pressure Pulse Oximetry 04/05/18 16:00 04/05/18 17:00 04/05/18 18:00 Temperature Pulse Rate 102 H 92 H 102 H Respiratory Rate 18 Blood Pressure 132/88 Pulse Oximetry 99 04/05/18 19:00 04/05/18 20:00 04/05/18 21:00 Temperature 99.3 F Pulse Rate 109 H 101 H 107 H Respiratory Rate 18 Blood Pressure 139/78 Pulse Oximetry 99 04/05/18 22:00 04/05/18 23:00 04/06/18 00:00 Temperature 97.9 F Pulse Rate 112 H 102 H 96 H Respiratory Rate 18 Blood Pressure 139/85 Pulse Oximetry 97 04/06/18 01:00 04/06/18 02:00 04/06/18 03:00 Temperature 98.3 F Pulse Rate 95 H 96 H 96 H Respiratory Rate 16 Blood Pressure 142/88 H Pulse Oximetry 96 04/06/18 04:00 04/06/18 05:00 04/06/18 06:00 Temperature Pulse Rate 88 94 H 99 H Respiratory Rate 16 Blood Pressure Pulse Oximetry 04/06/18 08:00 Temperature 98.2 F Pulse Rate 98 H Respiratory Rate 20 Blood Pressure 135/75 Pulse Oximetry 98 Intake & Output 04/05/18 04/06/18 04/06/18 18:59 06:59 18:59 Intake Total 1280 / 1280 460 / 460 Output Total 1100 / 1100 1150 / 1150 Balance 180 / 180 -690 / -690 Weight 132 kg Intake: IV 400 / 400 NS Inj 1,000 ML @ 100 mls/hr IV 400 / 400 .CONT .Q10H [facility] Rx#:[id number] Oral 880 / 880 460 / 460 Output: Urine 1100 / 1100 1150 / 1150 Other: Date of Last Bowel Movement 04/05/18 04/05/18 # Bowel Movements 1 - Constitutional no acute distress, obese - Routine HEENT Exam Head: Present: normocephalic, atraumatic Eye: Present: PERRL, normal accommodation ENT: Present: mucous membranes moist - Routine Neck Exam Present: supple - Routine Respiratory Exam Present: CTA bilaterally - Routine Cardiovascular Exam Present: tachycardia, irregularly irregular - Routine Abdominal Exam Present: soft - Routine Skin Exam Present: dry, scars, rash, cracked - Routine Neurological Exam Present: alert, oriented X3 - Detailed Neurological Exam: Coma Scale Eye Opening: Spontaneous Verbal Response: Oriented Motor Response: Obey commands [place] Coma Scale Total: 15 - Routine Psychiatric Exam Present: normal affect Results 04/04/18 08:01 04/04/18 08:01 CBC 04/04/18 Range/Units 08:01 WBC 2.9 L (4.0-11.0) th/mm3 RBC 4.43 L (4.50-5.90) mil/mm3 Hgb 12.8 L (13.0-17.0) gm/dL Hct 38.7 L (39.0-51.0) % Plt Count 90 L (150-450) th/mm3 Neut # (Auto) 1.9 (1.8-7.7) th/mm3 Lymph # (Auto) 0.5 L (1.0-4.8) th/mm3 [place] # (Auto) 0.3 (0.0-0.9) th/mm3 Eos # (Auto) 0.1 (0.0-0.4) th/mm3 Baso # (Auto) 0.0 (0.0-0.2) th/mm3 Comprehensive Metabolic Panel 04/04/18 Range/Units 08:01 Sodium 135 L (136-145) meq/L Potassium 4.0 (3.5-5.1) meq/L Chloride 100 (98-107) meq/L Carbon Dioxide 26.4 (21.0-32.0) meq/L BUN 10 (7-18) mg/dL Creatinine 1.14 (0.60-1.30) mg/dL Calcium 8.5 (8.5-10.1) mg/dL Albumin 3.2 L (3.4-5.0) g/dL Intake and Output 04/05/18 04/06/18 04/06/18 22:59 06:59 14:59 Intake Total 880 / 880 460 / 460 Output Total 1100 / 1100 1150 / 1150 Balance -220 / -220 -690 / -690 Intake: Oral 880 / 880 460 / 460 Output: Urine 1100 / 1100 1150 / 1150 Other: Date of Last Bowel Movement 04/05/18 04/05/18 # Bowel Movements 1 Weight 132 kg Assessment and Plan - Plan Assessment Atrial fibrillation Chest pain Hypokalemia, hyponatremia SOB HTN Alcohol withdrawal Psoriasis Plan On Xarelto. HR improved. Will continue Metoprolol 100mg BID, Amiodarone tapering dose and will increase Diltiazem to 120mg BID. CTA negative for PE. Pt had a negative low risk study nuclear stress test 2017. He denies any exertional chest pain. Troponin negative. CIWA protocol ordered per attending. Now on lithium, will be discharged with RX for tapering dose, advised to see PCP. We recommend evaluation for sleep apnea. area safety manager will provide information on AA. Patient will need cardiology follow up in 1-2 weeks to discuss further workup. Also advised to see Dr. Garcia in 1 week to discuss addiction and anxiety further. Note provided to stay out of work until further evaluation. The patient was seen and evaluated by Dr. Byrne who participated in care management and decision making. Code Status: Full Code Discussed Condition With: Attending Dr. Brunson RN
--- NOTE | 2018-04-06 09:41 | P.PNIM ---
Subjective Interval history: Patient says he is feeling right. Denies any chest pain shortness of breath. Physical Exam Vital signs: Vital Signs 04/05/18 10:00 04/05/18 11:00 04/05/18 12:00 Temperature Pulse Rate 100 H 110 H 100 H Respiratory Rate 20 Blood Pressure 122/88 Pulse Oximetry 99 04/05/18 13:00 04/05/18 14:00 04/05/18 15:00 Temperature Pulse Rate 100 H 92 H 100 H Respiratory Rate Blood Pressure Pulse Oximetry 04/05/18 16:00 04/05/18 17:00 04/05/18 18:00 Temperature Pulse Rate 102 H 92 H 102 H Respiratory Rate 18 Blood Pressure 132/88 Pulse Oximetry 99 04/05/18 19:00 04/05/18 20:00 04/05/18 21:00 Temperature 99.3 F Pulse Rate 109 H 101 H 107 H Respiratory Rate 18 Blood Pressure 139/78 Pulse Oximetry 99 04/05/18 22:00 04/05/18 23:00 04/06/18 00:00 Temperature 97.9 F Pulse Rate 112 H 102 H 96 H Respiratory Rate 18 Blood Pressure 139/85 Pulse Oximetry 97 04/06/18 01:00 04/06/18 02:00 04/06/18 03:00 Temperature 98.3 F Pulse Rate 95 H 96 H 96 H Respiratory Rate 16 Blood Pressure 142/88 H Pulse Oximetry 96 04/06/18 04:00 04/06/18 05:00 04/06/18 06:00 Temperature Pulse Rate 88 94 H 99 H Respiratory Rate 16 Blood Pressure Pulse Oximetry 04/06/18 08:00 Temperature 98.2 F Pulse Rate 98 H Respiratory Rate 20 Blood Pressure 135/75 Pulse Oximetry 98 Intake & Output 04/05/18 04/06/18 04/06/18 18:59 06:59 18:59 Intake Total 1280 / 1280 460 / 460 Output Total 1100 / 1100 1150 / 1150 Balance 180 / 180 -690 / -690 Weight 132 kg Intake: IV 400 / 400 NS Inj 1,000 ML @ 100 mls/hr IV 400 / 400 .CONT .Q10H [facility] Rx#:[id number] Oral 880 / 880 460 / 460 Output: Urine 1100 / 1100 1150 / 1150 Other: Date of Last Bowel Movement 04/05/18 04/05/18 # Bowel Movements 1 Narrative: GENERAL: Patient sitting up in bed. Appears comfortable. Awake. Alert and oriented x3. SKIN: Warm and dry. HEAD: Normocephalic. EYES: No scleral icterus. No injection or drainage. NECK: Supple, trachea midline. No JVD. CARDIOVASCULAR: Tachycardic. Irregularly irregular rhythm without murmurs, gallops, or rubs. RESPIRATORY: Breath sounds equal bilaterally. No accessory muscle use. GASTROINTESTINAL: Abdomen soft, non-tender, nondistended. MUSCULOSKELETAL: No cyanosis. Marketed, chronic, woody bilateral lower extremity edema. No broken skin BACK: Nontender without obvious deformity. No CVA tenderness. Results - Labs CBC & Chem 7: 04/04/18 08:01 04/04/18 08:01 Assessment and Plan - Plan 52-year-old male with history of A. fib, alcohol dependence, CHF admitted with A. fib with RVR. //A. fib with RVR: - Patient on Amiodarone drip per Cardiology. He is on metoprolol as well. Heart rate not well controlled yet. Defer to cardiology - Continue to monitor on telemetry. - Continue Xarelto. He definitely needs to stop drinking alcohol if he is to remain on blood thinners. 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 = 04/03. Discussed with patient. He will stop drinking alcohol completely. Will start on Librium taper continue CIWA protocol. Cardiology adjusting rate control medications. Appreciate assistance. = 04/04. Still with elevated heart rate. Diltiazem added by cardiology. Appreciate cardiology assistance. Continue Librium. Will need to be tapered at discharge. = 04/05. Still with elevated heart rate up to 120s. Follow-up cardiology recommendations. Continues on metoprolol and diltiazem. Continues on treatment for alcohol withdrawal with scheduled Librium. Does not appear to be in active withdrawal. = 04/06. Patient doing better today. Heart rate goes up to the 110s while were talking in the room. 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 Will discharge home on 180 CD once daily. //Alcohol dependence: - The patient was counseled extensively. - Continue CIWA protocol - Thiamine and folate = 04/03. Discussed with patient. Continue CIWA protocol. Start Librium. = Withdrawal controlled on Librium. taper at discharge. //Diastolic CHF exacerbation: Unknown type. - Continue Lasix, continue metoprolol. - Cardiology following. //Chest pain: Could be secondary to A. fib with RVR. - Troponins so far negative. EKG shows A. fib. Cardiology following. - Pain control. CTA neg. //Hypokalemia: Called after replacement. //GI prophylaxis: Stool softener PRN constipation. //Generalized psoriasis: Patient needs outpatient follow up with Dermatology for this chronic condition. 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 //DVT PPx: On Xarelto. Discharge Planning: Patient cleared for discharge by cardiology.
--- NOTE | 2018-04-06 09:47 | P.DS ---
Date of admission: 03/31/18 08:30 Primary care physician: Chad Garcia MD Brief History from admission: 52-year-old male with a medical history significant for atrial fibrillation, SVT , COPD, CHF, psoriasis, and alcohol dependence who presented to the emergency room with complaint of chest pain for about 14 hours. Patient reports the pain started at rest with associated heart palpitations. He denies shortness of breath. He reports he recently went back to drinking heavily 4-5 shots of vodka daily. In the emergency room, the patient was found to be in A. fib with RVR. He was started on a Cardizem drip. He is admitted to the hospital for further treatment. The patient's heart rate is still difficult to control currently. DS: Medications - Discharge Medications Prescriptions: albuterol sulfate [Ventolin HFA] 2 puff INH Q6HR PRN 30 Days g PRN Reason: Shortness Of Breath Or Wheezing amiodarone 200 mg PO DAILY 30 Days #30 tab chlordiazepoxide HCl See Label Instructions .ROUTE .COMPLEX #18 cap diltiazem HCl [Cardizem CD] 180 mg PO DAILY #30 cap furosemide 40 mg PO DAILY 30 Days #30 tab metoprolol tartrate 100 mg PO BID 30 Days #60 tab rivaroxaban [Xarelto] 20 mg PO DAILY 30 Days #30 tab DS: Summary Hospital Course: Patient with diastolic CHF exacerbation, which improved with Lasix, also found to have A. fib RVR which improved with amiodarone, diltiazem, metoprolol. Patient was also started on Xarelto. Patient reports significant alcohol intake , was started on Librium taper and will stop drinking alcohol. We'll need to follow-up with cardiology and primary care as outpatient. For problem-based summary for most recent progress note, please see below. 52-year-old male with history of A. fib, alcohol dependence, CHF admitted with A. fib with RVR. //A. fib with RVR: - Patient on Amiodarone drip per Cardiology. He is on metoprolol as well. Heart rate not well controlled yet. Defer to cardiology - Continue to monitor on telemetry. - Continue Xarelto. He definitely needs to stop drinking alcohol if he is to remain on blood thinners. Will defer to his legal administrator. = 04/03. Discussed with patient. He will stop drinking alcohol completely. Will start on Librium taper continue CIWA protocol. Cardiology adjusting rate control medications. Appreciate assistance. = 04/04. Still with elevated heart rate. Diltiazem added by cardiology. Appreciate cardiology assistance. Continue Librium. Will need to be tapered at discharge. = 04/05. Still with elevated heart rate up to 120s. Follow-up cardiology recommendations. Continues on metoprolol and diltiazem. Continues on treatment for alcohol withdrawal with scheduled Librium. Does not appear to be in active withdrawal. = 04/06. Patient doing better today. Heart rate goes up to the 110s while were talking in the room. 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 Will discharge home on 180 CD once daily. //Alcohol dependence: - The patient was counseled extensively. - Continue CIIN protocol - Thiamine and folate = 04/03. Discussed with patient. Continue CIWA protocol. Start Librium. = Withdrawal controlled on Librium. taper at discharge. //Diastolic CHF exacerbation: Unknown type. - Continue Lasix, continue metoprolol. - Cardiology following. //Chest pain: Could be secondary to A. fib with RVR. - Troponins so far negative. EKG shows A. fib. Cardiology following. - Pain control. CTA neg. //Hypokalemia: Called after replacement. //GI prophylaxis: Stool softener PRN constipation. //Generalized psoriasis: Patient needs outpatient follow up with Dermatology for this chronic condition. 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 //DVT PPx: On Xarelto. Discharge Planning: Patient cleared for discharge by cardiology. - Time Spent with Patient Total time spent providing and/or coordinating discharge services: Greater than 30 minutes - Quality: VTE Deep Vein Thrombosis/Pulmonary Embolism Present on Admission: No Exam Vital signs: Vital Signs 04/05/18 10:00 04/05/18 11:00 04/05/18 12:00 Temperature Pulse Rate 100 H 110 H 100 H Respiratory Rate 20 Blood Pressure 122/88 Pulse Oximetry 99 04/05/18 13:00 04/05/18 14:00 04/05/18 15:00 Temperature Pulse Rate 100 H 92 H 100 H Respiratory Rate Blood Pressure Pulse Oximetry 04/05/18 16:00 04/05/18 17:00 04/05/18 18:00 Temperature Pulse Rate 102 H 92 H 102 H Respiratory Rate 18 Blood Pressure 132/88 Pulse Oximetry 99 04/05/18 19:00 04/05/18 20:00 04/05/18 21:00 Temperature 99.3 F Pulse Rate 109 H 101 H 107 H Respiratory Rate 18 Blood Pressure 139/78 Pulse Oximetry 99 04/05/18 22:00 04/05/18 23:00 04/06/18 00:00 Temperature 97.9 F Pulse Rate 112 H 102 H 96 H Respiratory Rate 18 Blood Pressure 139/85 Pulse Oximetry 97 04/06/18 01:00 04/06/18 02:00 04/06/18 03:00 Temperature 98.3 F Pulse Rate 95 H 96 H 96 H Respiratory Rate 16 Blood Pressure 142/88 H Pulse Oximetry 96 04/06/18 04:00 04/06/18 05:00 04/06/18 06:00 Temperature Pulse Rate 88 94 H 99 H Respiratory Rate 16 Blood Pressure Pulse Oximetry 04/06/18 08:00 Temperature 98.2 F Pulse Rate 98 H Respiratory Rate 20 Blood Pressure 135/75 Pulse Oximetry 98 Intake & Output 04/05/18 04/06/18 04/06/18 18:59 06:59 18:59 Intake Total 1280 / 1280 460 / 460 Output Total 1100 / 1100 1150 / 1150 Balance 180 / 180 -690 / -690 Weight 132 kg Intake: IV 400 / 400 NS Inj 1,000 ML @ 100 mls/hr IV 400 / 400 .CONT .Q10H [facility] Rx#:[id number] Oral 880 / 880 460 / 460 Output: Urine 1100 / 1100 1150 / 1150 Other: Date of Last Bowel Movement 04/05/18 04/05/18 # Bowel Movements 1 Results Procedures completed during hospitalization: No invasive procedures. - Impressions ITS Impressions Chest CTA 03/31/18 00:00 CONCLUSION: 1. No evidence for pulmonary embolism. Chest X-Ray 03/31/18 05:27 CONCLUSION: Cardiomegaly. No acute pulmonary disease. Discharge Plan - Discharge Disposition Patient Disposition: Discharge Home - Discharge Condition Condition: Good - Discharge Order Discharge Orders: Discharge Order (Routine); Ordered 04/06/18 Ordered By: Tee Brunson Cardiology Clear for Discharge (Routine); Ordered 04/06/18 Ordered By: Karen Shadeed - Discharge Details Anticipated Discharge Date: 04/06/18 - Physicians Team Primary Care Provider: Chad Garcia Attending Provider: Tee Brunson Other Providers: Chiqui Byrne MD
[2018-04-06] MEDS: Metoprolol Tartrate 100 MG Tablet PO SCH (10:04)
[2018-04-06] MEDS: dilTIAZem CD 120 MG Capsule PO SCH (10:05)
[2018-04-06] MEDS: Amiodarone 200 MG Tablet PO SCH (10:05)
[2018-04-06] MEDS: Rivaroxaban 20 MG Tablet PO SCH (10:05)
[2018-04-06] MEDS: Furosemide 40 MG Tablet PO SCH (10:05)
[2018-04-06] MEDS: Sodium Chloride 0.9% 2 ML Flush BID IV.FLUSH SCH (10:09)
[2018-04-06 11:06] VITALS: BP 132/75; RESP 18; TEMP 98.3; O2SAT 96
[2018-04-06] MEDS ORDERED: Influenza (Quadrivalent) Vaccine 0.5 ML Syringe IM ONE (12:00)
[2018-04-06 13:16] VITALS: PULSE 100
[2018-04-14] MEDS ORDERED: Amiodarone 200 MG Tablet PO SCH (09:00)
== END 2018-04-06 14:35 | disposition home or self-care (01) ==
LOC: NEPE 05:09 → NEDA 08:30 → HCIS 09:30
PROVIDERS: ADMIT Internal Medicine; ATTEND Internal Medicine